=== PATIENT | female | born 1980 | race Caucasian/White ===

== ENCOUNTER 2016-10-19 08:24 | Emergency (ER) | payer BC, OTHER ==
[2016-10-19 08:36] VITALS: BP 105/81
--- NOTE | 2016-10-19 09:29 | UC ---
FLU HPI - HPI Summary HPI Summary: 2 DAYS OF FEVER, CHILLS, ST, TAVERA, BODY ACHES, COUGH, CONGESTION AND FATIGUE. ALSO HAS SOME MILD NAUSEA AND LOOSE STOOLS. NO FLU SHOT THIS SEASON. HAS BEEN TAKING LEFTOVER AMOXICILLIN WITH NO IMPROVEMENT. - History of Current Complaint Chief Complaint: UCRespiratory Stated Complaint: BODY ACHES,TAVERA,FEVER, CONGEST Time Seen by Provider: 10/19/16 09:07 Hx Obtained From: Patient Hx Last Menstrual Period: October 07, 2016 Onset/Duration: Gradual Onset, Lasting Days, Still Present Severity Currently: Moderate Severity Initially: Moderate Pain Intensity: 5 Pain Scale Used: 0-10 Numeric Associated Signs & Symptoms: Positive: Fever, Myalgia, Cough, Sore Throat, Nasal Congestion, Headache, Diarrhea - Allergy/Home Medications Allergies/Adverse Reactions: Allergies Allergy/AdvReac Type Severity Reaction Status Date / Time No Known Allergies Allergy Verified 12/26/15 15:58 Home Medications: Home Medications Albuterol 0.5% CONC NEB.SATINDER* 10/19/16 [History] Ibuprofen [Advil] 800 mg PO 10/19/16 [History] PMH/Surg Hx/FS Hx/Imm Hx Endocrine History Of: Denies: Diabetes, Thyroid Disease, Hyperthyroidism, Hypothyroidism, Dyslipidemia Cardiovascular History Of: Denies: Cardiac Disorders, Hypertension, Pacemaker/ICD, Myocardial Infarction , Congestive Heart Failure, Atrial Fibrillation, Deep Vein Thrombosis, Bleeding Disorders Respiratory History Of: Reports: Pneumonia - november - did not complete anbx as directed Denies: COPD, Asthma, Bronchitis, Pulmonary Embolism GI/ History Of: Denies: Gastroesophageal Reflux, Ulcer, Gastrointestinal Bleed, Gall Bladder Disease, Kidney Stones, Diverticulitis, Renal Disease, Urosepsis Neurological History Of: Reports: Migraine - X1 Denies: TIA, CVA, Dementia, Seizures Psychological History Of: Denies: Anxiety, Depression, Bipolar Disorder, Schizophrenia, Post Traumatic Stress Disorder Cancer History Of: Denies: Lung Cancer, Colorectal Cancer, Breast Cancer, Prostate Cancer, Cervical Cancer Other History Of: Negative For: HIV, Hepatitis B, Hepatitis C - Surgical History Surgical History: Yes Surgery Procedure, Year, and Place: 2006, [facility]. [facility], [facility], 17 YRS AGO - Family History Known Family History: Positive: Hypertension, Diabetes Negative: Respiratory Disease - Social History Alcohol Use: None Substance Use Type: None Smoking Status (MU): Light Every Day Tobacco Smoker Type: Cigarettes Amount Used/How Often: 1/2 PPD Have You Smoked in the Last Year: Yes Household Exposure Type: Cigarettes Review of Systems Constitutional: Fever, Chills, Fatigue ENT: Sore Throat, Ear Ache, Nasal Discharge Respiratory: Cough Cardiovascular: Negative Gastrointestinal: Diarrhea, Other - NAUSEA Musculoskeletal: Arthralgia, Myalgia Neurological: Headache All Other Systems Reviewed And Are Negative: Yes Physical Exam Triage Information Reviewed: Yes Appearance: No Pain Distress, Well-Nourished, Ill-Appearing - MILD Vital Signs: Initial Vital Signs Temp 98.8 F 10/19/16 08:30 Pulse 113 10/19/16 08:30 Resp 20 10/19/16 08:30 BP 105/81 10/19/16 08:30 Pulse Ox 98 10/19/16 08:30 Eyes: Positive: Conjunctiva Clear ENT: Positive: Hearing grossly normal, Pharynx normal, TMs normal Neck: Positive: Supple, Nontender, Enlarged Nodes @ - SPFL CERVICAL LAD Respiratory Exam: Normal Cardiovascular: Positive: Tachycardia Abdomen Description: Positive: Soft Musculoskeletal: Positive: No Edema Neurological: Positive: Alert Psychological: Positive: Age Appropriate Behavior Skin: Negative: rashes Diagnostics - Laboratory Diagnostic Studies Completed/Ordered: RAPID FLU NEGATIVE Flu Course/Dx - Differential Dx/Diagnosis Provider Diagnoses: ACUTE VIRAL SYNDROME Discharge - Discharge Plan Condition: Stable Disposition: HOME Patient Education Materials: Viral Syndrome (ED) Forms: *Work Release Referrals: Daily Milton MD [Primary Care Provider] - If Needed Additional Instructions: RAPID FLU NEGATIVE. REST, HYDRATE, OTC MEDS NEEDED FOR DISCOMFORT. SEEK FOLLOW-UP IF YOU ARE NOT IMPROVING EXPECTED OVER THE NEXT WEEK OR SO. CALL THE NUMBER BELOW FOR ASSISTANCE IN ESTABLISHING WITH A PCP An additional resource available to assist in finding the appropriate physician for your health care needs is the [facility] ([facility]). You may contact them by calling [phone].
== END 2016-10-19 10:05 | disposition home or self-care (01) ==
LOC: UCEAST 08:24
DX: B34.9 Viral infection, unspecified (principal); F17.210 Nicotine dependence, cigarettes, uncomplicated
CPT/HCPCS: 87502; 99211; G0463

== ENCOUNTER 2016-10-23 19:24 | Emergency (ER) | payer BC ==
[2016-10-23 20:16] VITALS: BP 121/79
[2016-10-23] MEDS ORDERED: Albuterol 2.5 MG/3 ML NEB.SOL* (0.083%) INH ONE (20:20)
--- NOTE | 2016-10-23 20:29 | UC ---
Respiratory Complaint HPI - HPI Summary HPI Summary: patient has had increased SOB, cough and ran out of her albuterol. has had re- occuring pnuemonia over this past year. she is coughing and having trouble catching her breath, slightly tachycardic, no fever - History of Current Complaint Chief Complaint: UCGeneralIllness Stated Complaint: SINUS PAIN,CONGESTION Time Seen by Provider: 10/23/16 20:18 Hx Obtained From: Patient Hx Last Menstrual Period: 10/21/16 ?: No Onset/Duration: Sudden Onset, Lasting Days Severity Initially: Mild Severity Currently: Severe Character: Cough: Nonproductive Aggravating Factors: Exertion, Deep Breaths, Recumbent Position Alleviating Factors: Upright Position Associated Signs And Symptoms: Positive: Dyspnea, Wheezing, URI, Nasal Congestion - Risk Factors Pulmonary Embolism Risk Factors: Negative Cardiac Risk Factors: Negative Pseudomonas Risk Factors: Negative Tuberculosis Risk Factors: Negative - Allergies/Home Medications Allergies/Adverse Reactions: Allergies Allergy/AdvReac Type Severity Reaction Status Date / Time No Known Allergies Allergy Verified 10/23/16 20:08 PMH/Surg Hx/FS Hx/Imm Hx Previously Healthy: Yes Endocrine History Of: Denies: Diabetes, Thyroid Disease, Hyperthyroidism, Hypothyroidism, Dyslipidemia Cardiovascular History Of: Denies: Cardiac Disorders, Hypertension, Pacemaker/ICD, Myocardial Infarction , Congestive Heart Failure, Atrial Fibrillation, Deep Vein Thrombosis, Bleeding Disorders Respiratory History Of: Reports: Pneumonia - november - did not complete anbx as directed Denies: COPD, Asthma, Bronchitis, Pulmonary Embolism GI/ History Of: Denies: Gastroesophageal Reflux, Ulcer, Gastrointestinal Bleed, Gall Bladder Disease, Kidney Stones, Diverticulitis, Renal Disease, Urosepsis Neurological History Of: Reports: Migraine - X1 Denies: TIA, CVA, Dementia, Seizures Psychological History Of: Denies: Anxiety, Depression, Bipolar Disorder, Schizophrenia, Post Traumatic Stress Disorder Cancer History Of: Denies: Lung Cancer, Colorectal Cancer, Breast Cancer, Prostate Cancer, Cervical Cancer Other History Of: Negative For: HIV, Hepatitis B, Hepatitis C - Surgical History Surgical History: Yes Surgery Procedure, Year, and Place: 2006, [facility]. [facility], 17 YRS AGO - Family History Known Family History: Positive: Hypertension, Diabetes Negative: Respiratory Disease - Social History Alcohol Use: None Substance Use Type: None Smoking Status (MU): Light Every Day Tobacco Smoker Type: Cigarettes Amount Used/How Often: 1/2 PPD Have You Smoked in the Last Year: Yes Household Exposure Type: Cigarettes - Immunization History Most Recent Influenza Vaccination: NONE Most Recent Tetanus Shot: UTD Most Recent Pneumonia Vaccination: N/A Review of Systems Constitutional: Negative Skin: Negative Eyes: Negative ENT: Sore Throat Respiratory: Shortness Of Breath, Cough Cardiovascular: Negative Gastrointestinal: Negative Genitourinary: Negative Motor: Negative Neurovascular: Negative Musculoskeletal: Negative Neurological: Headache Psychological: Negative All Other Systems Reviewed And Are Negative: Yes Physical Exam Triage Information Reviewed: Yes Appearance: Well-Nourished, Ill-Appearing, Pain Distress Vital Signs: Initial Vital Signs Temp 99.2 F 10/23/16 20:11 Pulse 110 10/23/16 20:11 Resp 18 10/23/16 20:11 BP 121/79 10/23/16 20:11 Pulse Ox 97 10/23/16 20:11 Vital Signs Reviewed: Yes Eye Exam: Normal Eyes: Positive: Conjunctiva Clear ENT: Positive: Pharyngeal erythema Dental Exam: Normal Neck exam: Normal Neck: Positive: Supple, Nontender, No Lymphadenopathy Respiratory Exam: Normal Respiratory: Positive: Chest non-tender, Normal breath sounds, Respiratory distress - mild, Rhonchi, Expiration, Inspiration Cardiovascular Exam: Normal Cardiovascular: Positive: No Murmur, Pulses Normal, Tachycardia Abdominal Exam: Normal Abdomen Description: Positive: Nontender, No Organomegaly, Soft Bowel Sounds: Positive: Present Musculoskeletal Exam: Normal Musculoskeletal: Positive: Strength Intact, ROM Intact, No Edema Neurological Exam: Normal Neurological: Positive: Alert, Muscle Tone Normal Psychological Exam: Normal Skin Exam: Normal UC Diagnostic Evaluation - Laboratory O2 Sat by Pulse Oximetry: 97 Re-Evaluation - Re-Evaluation First Eval Re-Evaluation Time: 20:55 - improved with neb treatment, wheezing still audible Change: Improved Respiratory Course/Dx - Course Course Of Treatment: hx obtained, exam performed, meds reviewed, albuterol neb given, chest xray obtained, no obvious infiltrate noted by Dr Trammell. Treated for sinusitis and Bronchitis. HX of smoking and chronic lung disease, starteed on LABA. gianfranco Claude infor given to find a PCP. - Differential Dx/Diagnosis Differential Diagnosis/HQI/PQRI: Asthma, Bronchitis, Influenza, Lower Resp Infection, Sinusitis Provider Diagnoses: sinusitis. bronchitis Discharge - Discharge Plan Condition: Stable Disposition: HOME Prescriptions: Azithromycin TAB* [Zithromax TAB (Z-RICHARD) 250 mg #6 tabs] 250 mg PO DAILY #4 tab Fluconazole [Diflucan 150 MG (NF)] 150 mg PO ONCE #1 tab Salmeterol DISKUS (NF) [Serevent Diskus (NF)] 1 puff .SEE ORDER BID #1 diskus predniSONE TAB* [Deltasone TAB*] 40 mg PO DAILY #10 tab Patient Education Materials: Acute Bronchitis (ED), COPD (Chronic Obstructive Pulmonary Disease) (ED), Sinusitis (ED) Additional Instructions: 1. take the medication as prescribed 2. Increase fluid intake 3. Get some rest 4. Take the medication as prescribed 5. Follow up with any worsening symptoms.
[2016-10-23] MEDS ORDERED: Albuterol HFA INHALER* 8 gm MDI INH ONE (20:30)
[2016-10-23] MEDS ORDERED: predniSONE TAB* 20 MG PO ONE (21:12)
[2016-10-23] MEDS ORDERED: Azithromycin TAB* 250 MG PO ONE (21:40)
--- NOTE | 2016-10-23 22:06 | RAD ---
INDICATION: Cough and shortness of breath COMPARISON: Most recent comparison chest x-ray May 09, 2016 TECHNIQUE: PA and lateral views of the chest were obtained. FINDINGS: The heart and mediastinum are normal in size and contour. The lungs are grossly clear. There is no evidence of large pleural effusion. Visualized bones are normal for the patient's age. There is no radiographic evidence of free air beneath the diaphragm IMPRESSION: No radiographic evidence of acute cardiopulmonary disease.
== END 2016-10-23 22:05 | disposition home or self-care (01) ==
LOC: UCEAST 19:24
DX: G43.909 Migraine, unspecified, not intractable, without status migrainosus (principal); J32.9 Chronic sinusitis, unspecified; J40 Bronchitis, not specified as acute or chronic; F17.210 Nicotine dependence, cigarettes, uncomplicated; Z87.01 Personal history of pneumonia (recurrent)
CPT/HCPCS: 71020; 99213; A9270-GY; G0463; J7512

== ENCOUNTER 2017-01-21 07:43 | Emergency (ER) | payer BC ==
[2017-01-21 07:58] VITALS: BP 121/78
[2017-01-21] MEDS ORDERED: ceFAZolin 1 GM ADVAN(*) 1 GM in NS 0.9% 50 ML* 50 ML IVPB ONE (09:03)
[2017-01-21] MEDS ORDERED: Ibuprofen TAB* 600 MG PO ONE (09:13)
--- NOTE | 2017-01-21 09:24 | UC ---
Jadon Mello Benjamin, scribed for Helen Colbert MD on 01/21/17 at 0856 . Skin Complaint HPI - HPI Summary HPI Summary: . 36 yo female c/o progresively worse left ant groin swelling and pain. Hx hydradenitis on and off x 20 years, most recently this bad approx 3 years ago. Request to be evaluated for iv abx and specialist referral. Does not want this "lanced" here. Started old rx for doxycycline 2 days ago, last took yesterday. Didn't help. Has been taking ibuprofen for pain. No fever but taking ibuprofen. - History of Current Complaint Chief Complaint: UCSkin Time Seen by Provider: 01/21/17 08:43 Stated Complaint: SKIN COMPLAINT Hx Obtained From: Patient Hx Last Menstrual Period: 12/27/16 - Allergy/Home Medications Allergies/Adverse Reactions: Allergies Allergy/AdvReac Type Severity Reaction Status Date / Time No Known Allergies Allergy Verified 01/21/17 07:50 Home Medications: Home Medications DOXYcycline CAP(*) [DOXYcycline 100MG CAP(*)] 1 tab PO 01/21/17 [History] Review of Systems Constitutional: Other - See HPI Skin: Negative Eyes: Negative ENT: Negative Respiratory: Negative Cardiovascular: Negative Gastrointestinal: Negative Genitourinary: Other - see hpi Motor: Negative Neurovascular: Negative Musculoskeletal: Negative Neurological: Negative Psychological: Negative All Other Systems Reviewed And Are Negative: Yes PMH/Surg Hx/FS Hx/Imm Hx - Additional Past Medical History Additional PMH: hidradenitis suppurativa Previously Healthy: Yes - see hpi Other History Of: Negative For: HIV, Hepatitis B, Hepatitis C - Surgical History Surgical History: Yes Surgery Procedure, Year, and Place: 2006, [facility]. [facility], 17 YRS AGO - Family History Known Family History: Positive: Hypertension, Diabetes Negative: Respiratory Disease - Social History Occupation: Employed Full-time Lives: With Family Alcohol Use: None Substance Use Type: None Smoking Status (MU): Light Every Day Tobacco Smoker Type: Cigarettes Amount Used/How Often: 1/2 PPD Have You Smoked in the Last Year: Yes Household Exposure Type: Cigarettes - Immunization History Most Recent Influenza Vaccination: NONE Most Recent Tetanus Shot: UTD Most Recent Pneumonia Vaccination: N/A Physical Exam Triage Information Reviewed: Yes Appearance: Well-Nourished, Pain Distress - uncomfortable with exam Vital Signs: Initial Vital Signs Temp 98.9 F 01/21/17 07:51 Pulse 104 01/21/17 07:51 Resp 16 01/21/17 07:51 BP 121/78 01/21/17 07:51 Pulse Ox 100 01/21/17 07:51 Vital Signs Reviewed: Yes Eye Exam: Normal ENT Exam: Normal Neck: Positive: Supple Respiratory Exam: Normal - No tachypnea, no dyspnea Respiratory: Positive: Normal breath sounds Cardiovascular: Positive: RRR, Pulses Normal, Brisk Capillary Refill Abdominal Exam: Other - L ant groin, lateral to the labia (not Corby cyst region ), wiht + swelling, redness, pinpoint purulence, not draining. Very tender. Abdomen Description: Positive: Nontender, No Organomegaly, Soft Bowel Sounds: Positive: Present Musculoskeletal Exam: Normal Neurological Exam: Normal Psychological Exam: Normal Skin Exam: Normal Skin: Negative: rashes Course/Dx - Course Course Of Treatment: Declines tetanus immunization. Emphatically does NOT want the lesion I/D'd, citing that the last time it was "lanced," approx 3 years ago , it took four times and she wound up in the hospital ([place]). Wants a specialist. Reviewed pt's medications list and allergies. Blood pressure noted. Discussed to Dr. Mcqueen ([employer]) at 09:02, he will see pt in ED. Discussed to Dr. Euceda (Emergency Medicine) at ED at 09:13 for transfer via private car. Offered EMS, pt declines. Questions answered to the best of my ability. Appreciative of plan and coa. - Diagnoses Provider Diagnoses: Left ant groin abscess, likely hydradenitis (hx of) Discharge - Discharge Plan Condition: Stable Disposition: ADMITTED TO [facility] Patient Education Materials: Abscess (ED) Referrals: Eldon Mcqueen MD [Medical Doctor] - Additional Instructions: Go to the Emergency Department. Do not eat or drink anything en route. The documentation as recorded by the Jadon gannon Benjamin accurately reflects the service I personally performed and the decisions made by me, Helen Colbert MD.
== END 2017-01-21 09:30 | disposition short-term general hospital (02) ==
LOC: UCEAST 07:43
DX: L02.214 Cutaneous abscess of groin (principal); Z32.02 Encounter for pregnancy test, result negative; F17.210 Nicotine dependence, cigarettes, uncomplicated
CPT/HCPCS: 81003; 84702; 99212; A9270-GY; G0463

== ENCOUNTER 2017-01-21 09:49 | Emergency (ER) | payer BC ==
[2017-01-21 11:28] VITALS: BP 139/81
--- NOTE | 2017-01-21 11:46 | ED ---
Skin Complaint - HPI Summary HPI Summary: Patient is a 36yo female who presents form the [facility] with CC of hidradenitis suppurativa with abscess in the left anterior groin with swelling and pain. Most recently this bad approx 3 years ago. Request to be evaluated for iv abx and specialist referral. Does not want this "lanced" here. Started old rx for doxycycline 2 days ago, last took yesterday. Didn't help. Has been taking ibuprofen for pain. No fever but taking ibuprofen. She states she does not want it to be I and D'd and continues to say states she only wants the IV abx and to be referred to a specialist next week. Denies fevers, sweats or chills. Denies other rashes. - History of Current Complaint Chief Complaint: EDRashSkinAbscess Time Seen by Provider: 01/21/17 10:02 Stated Complaint: GROIN ABSCESS Hx Obtained From: Patient Hx Last Menstrual Period: 12/27/16 Onset/Duration: Started Hours Ago Skin Exposure Onset/Duration: Hours Ago Timing: Constant Onset Severity: Moderate Pain Intensity: 6 Pain Scale Used: 0-10 Numeric Skin Location: Leg - left anterior groin Character: Swelling, Pain, Redness, Raised, Painful Aggravating Symptom(s): Touch Alleviating Symptom(s): Nothing Associated Signs & Symptoms: Tenderness - Additional Pertinent History Previous Visit Within 72 Hours for the same complaint: Clinic - [facility] - Allergy/Home Medications Allergies/Adverse Reactions: Allergies Allergy/AdvReac Type Severity Reaction Status Date / Time No Known Allergies Allergy Verified 01/21/17 09:53 PMH/Surg Hx/FS Hx/Imm Hx Previously Healthy: Yes Endocrine/Hematology History: Reports: Other Endocrine/Hematological Disorders - Molar Denies: Hx Diabetes, Hx Systemic Lupus Erythematosus, Hx Sickle Cell Disease , Hx Thyroid Disease Cardiovascular History: Denies: Hx Congestive Heart Failure, Hx Deep Vein Thrombosis, Hx Hypertension , Hx Myocardial Infarction, Hx Pacemaker/ICD, Other Cardiovascular Problems/ Disorders Respiratory History: Reports: Hx Pneumonia - november - did not complete anbx as directed Denies: Hx Asthma, Hx Chronic Obstructive Pulmonary Disease (COPD), Hx Cystic Fibrosis, Hx Lung Cancer, Hx Pulmonary Embolism, Other Respiratory Problems/Disorders GI History: Denies: Hx Gall Bladder Disease, Hx Gastrointestinal Bleed, Hx Ulcer, Hx Urosepsis History: Reports: Hx Kidney Infection - JAN 2015 Denies: Hx Dialysis, Hx Kidney Stones, Hx Renal Disease Musculoskeletal History: Denies: Hx Rheumatoid Arthritis, Other Musculoskeletal History Sensory History: Reports: Hx Contacts or Glasses - CONTACTS Denies: Hx Hearing Aid Opthamlomology History: Reports: Hx Contacts or Glasses - CONTACTS Neurological History: Reports: Hx Migraine - X1 Denies: Hx Dementia, Hx Seizures, Hx Transient Ischemic Attacks (TIA), Other Neuro Impairments/Disorders Psychiatric History: Denies: Hx Anxiety, Hx Depression, Hx Schizophrenia, Hx Bipolar Disorder - Cancer History Hx Chemotherapy: No Hx Radiation Therapy: No - Surgical History Surgery Procedure, Year, and Place: 2006, [facility]. 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 Denies: Hx Hepatitis, Hx Human Immunodeficiency Virus (HIV), Hx Shingles, Hx Tuberculosis, History Other Infectious Disease, Traveled Outside the [place] in Last 30 Days - Family History Known Family History: Positive: Hypertension, Diabetes Negative: Respiratory Disease - Social History Alcohol Use: None Substance Use Type: Reports: None Hx Tobacco Use: Yes Smoking Status (MU): Light Every Day Tobacco Smoker Type: Cigarettes Amount Used/How Often: 1/2 PPD Have You Smoked in the Last Year: Yes Review of Systems Constitutional: Negative Eyes: Negative Cardiovascular: Negative Gastrointestinal: Negative Positive: no symptoms reported, see HPI Positive: Other - 2x2 raised painful erythematous abscess on left groin without drainage Neurological: Negative Psychological: Normal All Other Systems Reviewed And Are Negative: Yes Physical Exam Triage Information Reviewed: Yes Vital Signs On Initial Exam: Initial Vitals Temp Pulse Resp BP Pulse Ox 98.6 F 97 16 131/86 100 01/21/17 09:53 01/21/17 09:53 01/21/17 09:53 01/21/17 09:53 01/21/17 09:53 Vital Signs Reviewed: Yes Appearance: Positive: Well-Appearing, Well-Nourished Skin: Positive: Warm, Skin Color Reflects Adequate Perfusion, Other - 2x2 raised painful erythematous abscess on left groin without drainage Head/Face: Positive: Normal Head/Face Inspection Neck: Positive: Supple, No Lymphadenopathy Respiratory/Lung Sounds: Positive: Clear to Auscultation, Breath Sounds Present Cardiovascular: Positive: Normal, RRR, Pulses are Symmetrical in both Upper and Lower Extremities Musculoskeletal: Positive: Normal Neurological: Positive: Sensory/Motor Intact, Alert, Oriented to Person Place, Time Psychiatric: Positive: Normal AVPU Assessment: Alert - Ling Coma Scale Coma Scale Total: 15 Diagnostics - Vital Signs Vital Signs Temp Pulse Resp BP Pulse Ox 01/21/17 11:20 98.6 F 65 18 139/81 98 01/21/17 09:53 98.6 F 97 16 131/86 100 - Laboratory Result Diagrams: 01/21/17 12:25 01/21/17 12:25 Lab Statement: Any lab studies that have been ordered have been reviewed, and results considered in the medical decision making process. Course/Dx - Course Course Of Treatment: Patient sent by [facility] for evaluation of abscess. Hx of hidradenitis suppurativa. 2x2 raised painful erythematous abscess on left groin without drainage. Called and spoke with Dr. Mcqueen (OBGYN) who suggested follow up as outpatient (recommended [facility]) and Tetracycline 500mg BID x 10 weeks. She states she has had this in the past and has worked. All labs WNL. She is adament about not wanting the area to have an I and D. Denies fevers, sweats or chills and no systemic infection is suspected. Medications were reveiwed with patient. Encouarged to follow up with PCP or return to ED for worsening symptoms. Return precautions given. Patient understands and agrees with plan. Ok for discharge. - Differential Diagnoses - Skin Complaint Differential Diagnoses: Abscess, Cellulitis - Diagnoses Provider Diagnoses: Hidradenitis suppurativa, Abscess Discharge - Discharge Plan Condition: Stable Disposition: HOME Prescriptions: Tetracycline HCl 500 mg PO BID #140 cap Patient Education Materials: Hidradenitis Suppurativa (ED) Referrals: Eldon Mcqueen MD [Medical Doctor] - No Primary Care Phys,NOPCP [Primary Care Provider] - Additional Instructions: This is likely something which will need to be followed by [facility]. I have given you a referral to our OBGYN, but should still follow up at [facility] Take Tetracycline 500mg twice daily for 10 weeks. If symptoms become worse, you develop fevers, sweats or chills - return to the ED immediately. Images - Images Full Body (No Head): 1 - 2x2 raised painful erythematous abscess on left groin without drainage
[2017-01-21] MEDS ORDERED: Clindamycin 900 MG IVPREMIX(* 900 MG/50 ML SDV IV ONE (11:54)
[2017-01-21 12:35] LABS: Hematocrit 42 % (35-47); Hemoglobin 13.9 g/dl (12.0-16.0); Mean Corpuscular HGB Conc 33 g/dl (31-36); Mean Corpuscular Hemoglobin 29 pg (27-31); Mean Corpuscular Volume 87 fL (80-97); Mean Platelet Volume 9 um3 (7.4-10.4); Red Blood Count 4.84 10^6/ul (4.0-5.4); Red Cell Distribution Width 14 % (10.5-15); White Blood Count 9.6 10^3/ul (3.5-10.8)
[2017-01-21 12:52] LABS: BUN/Creatinine Ratio 19.8 (8-20); C Reactive Protein 2.43 mg/L (< 5.00); EGFR African American 103.5 (>60); EGFR Non-African American 80.5 (>60); Globulin 2.6 g/dL (2-4); Potassium 4.1 mmol/L (3.5-5.0); Total Bilirubin 0.5 mg/dL (0.2-1.0); Total Protein 6.6 g/dL (6.4-8.9)
[2017-01-21 14:14] LABS: Erythrocyte Sed Rate 8 mm/Hr (0-14)
== END 2017-01-21 13:21 | disposition home or self-care (01) ==
LOC: ED 09:49
DX: L73.2 Hidradenitis suppurativa (principal); L02.214 Cutaneous abscess of groin; F17.210 Nicotine dependence, cigarettes, uncomplicated
CPT/HCPCS: 36415; 80053; 85025; 85652; 86140; 99282

== ENCOUNTER 2017-05-13 11:29 | Emergency (ER) | payer BC ==
[2017-05-13 12:44] VITALS: BP 99/80
--- NOTE | 2017-05-13 13:08 | UC ---
Respiratory Complaint HPI - HPI Summary HPI Summary: 36 yo female with an one week hx of progressively worsening sinus pressure and pain worse on right right dental pain and gum sensitivity - History of Current Complaint Chief Complaint: UCRespiratory Stated Complaint: SINUS CONGESTION, AND ACHES Time Seen by Provider: 05/13/17 12:51 Hx Obtained From: Patient Hx Last Menstrual Period: 3 wks ago Onset/Duration: Gradual Onset, Lasting Weeks - 1 Timing: Constant Severity Initially: Mild Severity Currently: Moderate Pain Intensity: 4 Pain Scale Used: 0-10 Numeric Aggravating Factors: Other Alleviating Factors: Other Associated Signs And Symptoms: Positive: Fever, Chills, Nasal Congestion, Sinus Discomfort - Allergies/Home Medications Allergies/Adverse Reactions: Allergies Allergy/AdvReac Type Severity Reaction Status Date / Time No Known Allergies Allergy Verified 05/13/17 12:44 PMH/Surg Hx/FS Hx/Imm Hx Previously Healthy: Yes Other History Of: Negative For: HIV, Hepatitis B, Hepatitis C - Surgical History Surgical History: Yes Surgery Procedure, Year, and Place: 2006, [facility]. [facility], [facility], 17 YRS AGO - Family History Known Family History: Positive: Hypertension, Diabetes Negative: Respiratory Disease - Social History Alcohol Use: None Substance Use Type: None Smoking Status (MU): Light Every Day Tobacco Smoker Type: Cigarettes Amount Used/How Often: 1/2 PPD Have You Smoked in the Last Year: Yes Household Exposure Type: Cigarettes - Immunization History Most Recent Influenza Vaccination: NONE Most Recent Tetanus Shot: UTD Most Recent Pneumonia Vaccination: N/A Review of Systems Constitutional: Fever, Chills, Fatigue Skin: Negative Eyes: Negative ENT: Dental Pain, Ear Ache, Nasal Discharge, Sinus Congestion, Sinus Pain/ Tenderness Respiratory: Cough Cardiovascular: Negative Gastrointestinal: Negative Genitourinary: Negative Motor: Negative Neurovascular: Negative Musculoskeletal: Negative Neurological: Negative Psychological: Negative Is Patient Immunocompromised?: No All Other Systems Reviewed And Are Negative: Yes Physical Exam Triage Information Reviewed: Yes Appearance: Well-Appearing, No Pain Distress, Well-Nourished Vital Signs: Initial Vital Signs Temp 98.8 F 05/13/17 12:41 Pulse 101 05/13/17 12:41 Resp 18 05/13/17 12:41 BP 99/80 05/13/17 12:41 Pulse Ox 100 05/13/17 12:41 Vital Signs Reviewed: Yes Eyes: Positive: Conjunctiva Clear ENT: Positive: Nasal congestion, Nasal drainage, TM bulging - R>L, Hoarse voice , Sinus tenderness - R>L. Negative: Trismus Neck: Positive: Supple, Nontender, No Lymphadenopathy Respiratory: Positive: Lungs clear, Normal breath sounds, No respiratory distress Cardiovascular: Positive: RRR, No Murmur Musculoskeletal: Positive: ROM Intact, No Edema Neurological: Positive: Alert Psychological Exam: Normal Skin Exam: Normal UC Diagnostic Evaluation - Laboratory O2 Sat by Pulse Oximetry: 100 - normal/not hypoxic Respiratory Course/Dx - Differential Dx/Diagnosis Provider Diagnoses: acute sinusitis. bilateral serous otitis media Discharge - Discharge Plan Condition: Stable Disposition: HOME Prescriptions: Amoxicillin PO (*) [Amoxicillin 875 MG (*)] 875 mg PO BID #20 tab Fluconazole 150 MG (NF) [Diflucan 150 mg (NF)] 150 mg PO ONCE #2 tab Patient Education Materials: Sinusitis (ED) Forms: *Work Release Referrals: No Primary Care Phys,NOPCP [Primary Care Provider] - Additional Instructions: afrin nasal spray 2 sprays each nostril 3x day for three days ONLY saline nasal spray 2 sprays each nostril twice daily as needed
== END 2017-05-13 13:16 | disposition home or self-care (01) ==
LOC: UCEAST 11:29
DX: J01.90 Acute sinusitis, unspecified (principal); H65.93 Unspecified nonsuppurative otitis media, bilateral; Z72.0 Tobacco use
CPT/HCPCS: 99212; G0463

== ENCOUNTER 2018-06-22 15:46 | Emergency (ER) | payer SELFPAY ==
[2018-06-22 15:56] VITALS: BP 125/77
--- NOTE | 2018-06-22 16:23 | UC ---
Abdominal Pain Female HPI - HPI Summary HPI Summary: 37-year-old woman comes to clinic today with a sudden onset of right lower quadrant abdominal pain. Started about an hour ago. Pain is severe. It's worse with movement of her right leg. Pain slightly less with her right hip flexed. Pain is bad enough where she felt nauseous. Denies any flank pain. Her only prior abdominal surgery was a . She does have a history of ovarian cyst. Her last period was 2 weeks ago denies any abnormal vaginal discharge or any concern of STI. No burning with urination did not see any blood in her urine. No history of kidney stones. - History of Current Complaint Chief Complaint: UCAbdominalPain Stated Complaint: ABDOMINAL PAIN Time Seen by Provider: 06/22/18 16:12 Hx Last Menstrual Period: 06/09/18 Pain Intensity: 7 Allergies/Adverse Reactions: Allergies Allergy/AdvReac Type Severity Reaction Status Date / Time No Known Allergies Allergy Verified 06/22/18 15:56 PMH/Surg Hx/FS Hx/Imm Hx Previously Healthy: Yes Other History Of: Negative For: HIV, Hepatitis B, Hepatitis C - Surgical History Surgical History: Yes Surgery Procedure, Year, and Place: 2006, [facility]. [facility], [facility], 17 YRS AGO - Family History Known Family History: Positive: Hypertension, Diabetes Negative: Respiratory Disease - Social History Alcohol Use: None Substance Use Type: None Smoking Status (MU): Heavy Every Day Tobacco Smoker Type: Cigarettes Amount Used/How Often: 1/2 PPD Have You Smoked in the Last Year: Yes Household Exposure Type: Cigarettes - Immunization History Most Recent Influenza Vaccination: NONE Most Recent Tetanus Shot: UTD Most Recent Pneumonia Vaccination: N/A Review of Systems All Other Systems Reviewed And Are Negative: Yes Constitutional: Positive: Negative Skin: Positive: Negative Eyes: Positive: Negative ENT: Positive: Negative Respiratory: Positive: Negative Cardiovascular: Positive: Negative Gastrointestinal: Positive: Abdominal Pain Genitourinary: Negative: Dysuria, Frequency, Urgency, Vaginal/Penile Discharge Motor: Positive: Negative Neurovascular: Positive: Negative Musculoskeletal: Positive: Negative Neurological: Positive: Negative Psychological: Positive: Negative Is Patient Immunocompromised?: No Physical Exam Triage Information Reviewed: Yes Appearance: Well-Nourished, Ill-Appearing - MILD, Pain Distress - MODERATE Vital Signs: Initial Vital Signs Temp 99.1 F 06/22/18 15:52 Pulse 91 06/22/18 15:52 Resp 20 06/22/18 15:52 BP 125/77 06/22/18 15:52 Pulse Ox 100 06/22/18 15:52 Vital Signs Reviewed: Yes Eye Exam: Normal Eyes: Positive: Conjunctiva Clear ENT: Positive: Other - ORAL MUCOSA MOIST Neck exam: Normal Neck: Positive: Supple Respiratory: Positive: Lungs clear, Normal breath sounds, No respiratory distress Cardiovascular: Positive: RRR Abdomen Description: Positive: Guarding, Other: - TENDER TO PALPATION RLQ. PAIN WITH RT HIP ROM.. Negative: CVA Tenderness (R), CVA Tenderness (L) Bowel Sounds: Positive: Hypoactive Musculoskeletal Exam: Normal Musculoskeletal: Positive: Strength Intact, ROM Intact Neurological Exam: Normal Neurological: Positive: Alert, Muscle Tone Normal Psychological Exam: Normal Psychological: Positive: Age Appropriate Behavior Skin Exam: Normal Abd Pain Female Course/Dx - Course Course Of Treatment: Patient's pain was moderate to severe in the clinic. With her tenderness in the right lower quadrant a differential includes appendicitis or ovarian source of the pain. Pain is worse with movements it's less likely kidney stone. However here in the clinic we do does not have ultrasound are real-time labs and I recommended the patient go to the emergency department. She is getting a ride from her boyfriend. - Differential Dx/Diagnosis Provider Diagnosis: Right lower quadrant abdominal pain Discharge - Sign-Out/Discharge Documenting (check all that apply): Patient Departure All imaging exams completed and their final reports reviewed: No Studies - Discharge Plan Condition: Stable Disposition: HOME-RECOMMEND TO ED Patient Education Materials: Acute Abdominal Pain (ED) Referrals: [facility] [Outside] Additional Instructions: GO DIRECTLY TO THE EMERGENCY DEPARTMENT FOR FURTHER EVALUATION. - Billing Disposition and Condition Condition: STABLE Disposition: Home-Recommend to ED
== END 2018-06-22 16:30 | disposition home health service (06) ==
LOC: UCEAST 15:46
DX: R10.31 Right lower quadrant pain (principal); F17.210 Nicotine dependence, cigarettes, uncomplicated
CPT/HCPCS: 81003; 84702; 99212; G0463

== ENCOUNTER 2018-08-24 07:39 | Inpatient (IN) | payer OTHER ==
[2018-08-24] MEDS ORDERED: NS 0.9% 1000 ML** 1,000 ML IV ONE (07:42)
--- NOTE | 2018-08-24 07:55 | ED ---
Neurological HPI - HPI Summary HPI Summary: Pt is a 37 y/o F presenting to the ED brought in by EMS for severe diffuse headache described as pressure. Per EMS, she woke up this morning with a severe , gradually worsening TAVERA and disorientation and dizziness with feeling like she was going to fall. Prior to arrival, she was negative on [place] scale per EMS The pt has a hx of CVA about 7 years ago where she originally came to [facility] ( this ED visit not visible to Dr. Euceda), was given TPA per pt (when asked specifically whether she had been given TPA), and was transferred to [facility]. (although pt is truly unsure of these details and wishes her mother were present to give more details.)She also has a hx of cluster headaches after her stroke, and Factor V Leiden. Pt is not on anticoagulants, and states she never has been. Pt states she had LP's at [facility] that helped her TAVERA's. Pt states she has not had her cluster headaches "in a long time", months at least. Per patient, she has had her headache for a couple of days, but she woke up today around 0500 with the severe headache, then went to go shower at 0530, as she was planning on driving to the emergency department, when she felt like she was going to fall to the right, and difficulty walking. She also reports severe shortness of breath, dizziness described as room spinning, and she had to think about everything she was doing in detail, as well as any spots in her vision while in the shower. Last known well this morning at 0500. Movement is aggravating, sitting up is alleviating. Pt denies hx of asthma, thyroid issues, sinus issues, or anticoagulation therapy. Pt also reports cough. She is not able to easily describe her feeling, and states she has not had it before, but states "it is not right". The pt has no hx of bleeding or trauma recently. . Per Eneida, staff at [facility] who knows her, she has had episodes approximately 1 year ago where she experienced syncope and had severe headaches and was going to [place] to be treated. The pt was seen at bedside on EMS arrival at 0737 (pt was not in the tracker until 0739). Adriano stoll called at 0740. NIH score at this time was 0. Pt gone to CT at 0742. Doctor gone to CT at 0748. Pt returned from CT at 0749. Pt is in room as of 0751. Vital signs on entering room: HR 95bpm, BP 115/88. Dr. Shah is aware at 0752. 0753 NIH scale is 0. 0756 Dr. Martinez from radiology called to report normal Brain CT. Dr. Edwards on telestroke call at 0802. 0820 Dr. Edwards wanted her to stand that causes her to wince and complain of headache. She reports dizziness, feeling like shes going to fall to her right, and is wobbly. Pt is unable to put her feet together and reaches out for support, feeling that she is falling. TPA discussed and approved by pt and recommended by Dr. Edwards at 0836. Dr. Shah in room at 0842. TPA hanging at 0846. BP at this time 143/99, pulse 93bpm, O2 sat 93%. 0849 On the phone with ICU, Dr. Hayes accepts the pt for admission at 0852. Bolus of TPA is in and infusion is beginning as of 0855 and the pt refused a velásquez catheter. Blood glucose fingerstick was 91 prior to TPA. LNMP last week. No excessive vaginal bleeding. A1. She is not on control. She is a smoker. She has a hx of smoking but has been trying to quit the last two weeks. She has had 2-4 cigarettes a day since then. She denies any drug or alcohol use. - History of Current Complaint Stated Complaint: CONFUSION PER EMS Time Seen by Provider: 08/24/18 07:39 Last Known Well Date: 08/24/18 05:00 Hx Obtained From: Patient, EMS Hx Last Menstrual Period: 06/09/18 Onset/Duration: Gradual Onset, Started days ago, Worse Since - this morning Timing: Constant Onset Severity: Moderate Current Severity: Worse Since: - this morning around 0530, now severe ( gradually worsening, not thunderclap) Neurological Deficit Location: Generalized Headache Location: Radiates to : - diffuse all over head Pain Intensity: 7 Pain Scale Used: 0-10 Numeric Character: Head Spinning, Room Spinning, Dizzy, Pressure, Confusion, Other: - gait disturbance Aggravating: Exertion, Position Change/Supine to Erect, Change in Head Position Alleviating: Position Change, Other - sitting up Associated Signs and Symptoms: Positive: Unsteady Gait, Confusion, Dizziness, Nausea/Vomiting - nausea no vomiting, Shortness of Breath. Negative: Visual Changes, Impaired Speech, Numbness, Fever TPA Considered: Yes - approved 0836 by patient (with mother present) per Dr. Edwards, telestroke. Similar Episode/Dx as: CVA 7 yrs ago, cluster headaches associated Related Hx: Anticoagulants - NOT ON ANTICOAGULANTS, +HX FACTOR V LEIDEN - Allergy/Home Medications Allergies/Adverse Reactions: Allergies Allergy/AdvReac Type Severity Reaction Status Date / Time No Known Allergies Allergy Verified 06/22/18 15:56 Home Medications: Home Medications NK [No Home Medications Reported] 08/24/18 [History Confirmed 08/24/18] PMH/Surg Hx/FS Hx/Imm Hx Previously Healthy: No Endocrine/Hematology History: Reports: Hx Blood Disorders - Factor V Leiden Denies: Hx Anticoagulant Therapy, Hx Diabetes, Hx Systemic Lupus Erythematosus, Hx Sickle Cell Disease, Hx Thyroid Disease Cardiovascular History: Denies: Hx Congestive Heart Failure, Hx Deep Vein Thrombosis, Hx Hypertension , Hx Myocardial Infarction, Hx Pacemaker/ICD Respiratory History: Reports: Hx Pneumonia Denies: Hx Asthma, Hx Chronic Obstructive Pulmonary Disease (COPD), Hx Cystic Fibrosis, Hx Lung Cancer, Hx Pulmonary Embolism, Other Respiratory Problems/Disorders GI History: Denies: Hx Gall Bladder Disease, Hx Gastrointestinal Bleed, Hx Ulcer, Hx Urosepsis History: Reports: Hx Kidney Infection - JAN 2015 Denies: Hx Dialysis, Hx Kidney Stones, Hx Renal Disease Musculoskeletal History: Denies: Hx Rheumatoid Arthritis, Other Musculoskeletal History Sensory History: Reports: Hx Contacts or Glasses - CONTACTS Denies: Hx Hearing Aid Opthamlomology History: Reports: Hx Contacts or Glasses - CONTACTS EENT History: Denies: Other - sinus issues Neurological History: Reports: Hx CVA - possible CVA 7 yrs ago, Hx Migraine - X1 , Other Neuro Impairments/Disorders - cluster headaches Denies: Hx Dementia, Hx Seizures, Hx Transient Ischemic Attacks (TIA) Psychiatric History: Denies: Hx Anxiety, Hx Depression, Hx Schizophrenia, Hx Bipolar Disorder - Cancer History Hx Chemotherapy: No Hx Radiation Therapy: No - Surgical History Surgery Procedure, Year, and Place: 2006, [facility]. 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 thigh Denies: Hx Hepatitis, Hx Human Immunodeficiency Virus (HIV), Hx Shingles, Hx Tuberculosis, History Other Infectious Disease - Family History Known Family History: Positive: Hypertension, Diabetes Negative: Respiratory Disease - Social History Occupation: Employed Full-time Lives: With Family Alcohol Use: None Hx Substance Use: No Substance Use Type: Reports: None Hx Tobacco Use: Yes - trying to quit Smoking Status (MU): Heavy Every Day Tobacco Smoker Type: Cigarettes Amount Used/How Often: 1/2 PPD Have You Smoked in the Last Year: Yes Review of Systems Negative: Fever Negative: Other - spots in vision ENT: Negative Cardiovascular: Negative Positive: Shortness Of Breath, Cough Positive: Nausea Positive: no symptoms reported Musculoskeletal: Negative Skin: Negative Neurological: Other - dizziness, feeling unsteady when walking Positive: Headache, Weakness. Negative: Numbness Psychological: Normal All Other Systems Reviewed And Are Negative: Yes Physical Exam - Summary Physical Exam Summary: Appearance: Ill-appearing, moderate pain distress, well-nourished Skin: Warm, color reflects adequate perfusion, dry Head: Normal Head/Face inspection, atraumatic Eyes: Conjunctiva clear, PERRL, EOMI, no nystagmus ENT: Normal inspection, palate elevates normally, pharynx normal Neck: Supple, no nodes, no JVD, no bruits Respiratory: Lungs clear, normal breath sounds, no respiratory distress Cardio: RRR, No murmur, pulses normal, brisk capillary refill Abdomen: Soft, nontender Bowel sounds: Present Musculoskeletal: Strength Intact/ROM intact, no calf tenderness, no edema. Psychological: Normal Neuro: A&O x3, CN II-XII intact, motor function 5/5, sensation intact, cerebellar normal FTN and heel to og[place], Unable to stand with feet together without falling to left, (but feels like she is falling to the right)and reaching for support. +Rhomberg. NIH zero GCS: 15 Triage Information Reviewed: Yes Vital Signs Reviewed: Yes - Ling Coma Scale Best Eye Response: 4 - Spontaneous Best Motor Response: 6 - Obeys Commands Best Verbal Response: 5 - Oriented Coma Scale Total: 15 Diagnostics - Laboratory Result Diagrams: 08/24/18 07:58 08/24/18 07:58 Lab Statement: Any lab studies that have been ordered have been reviewed, and results considered in the medical decision making process. - Radiology Chest x-ray Radiology Interpretation Completed By: Radiologist Summary of Radiographic Findings: No evidence for acute disease. ED physician has reviewed this report. - CT Brain CT CT Interpretation Completed By: Radiologist Summary of CT Findings: No evidence for intracranial hemorrhage following TPA administration. Stable exam compared with the 0748 hours exam of the same date. ED physician has reviewed this report. Brain CT I CT Interpretation Completed By: Radiologist Summary of CT Findings: No acute intracranial process evident. ED physician has reviewed this report. - EKG 0933 Cardiac Rate: NL - 75bpm EKG Rhythm: Sinus Rhythm ST Segment: Non-Specific Ectopy: None Summary of EKG Findings: An EKG at 0933 reveals NSR 75bpm nml AV/IV CT, nml QTc , and nml axis. No acute changes. ED physician has reviewed this report. NIH Scale - NIH Scale Level of Consciousness: Alert/Keenly Responsive Ask Patient the Month and His/Her Age: Both Correct Ask Pt to Open/Close Eyes and Web Marketing Assistant/Release Non-Paretic Hand: Both Correctly Best Gaze (Only Horizontal Eye Movement): Normal Visual Field Testing: No Visual Loss Facial Paresis-Pt to Smile & Close Eyes or Grimace Symmetry: Normal/Symmetrical Motor Function - Right Arm: No Drift-Holds 10 Seconds Motor Function - Left Arm: No Drift-Holds 10 Seconds Motor Function - Right Leg: No Drift-Holds 10 Seconds Motor Function - Left Leg: No Drift-Holds 10 Seconds Limb Ataxia-Must be out of Proportion to Weakness Present: Absent Sensory (Use Pinprick to Test Arms/Legs/Trunk/Face): Normal Best Language (Describe Picture, Name Items): No Aphasia Dysarthria (Read Several Words): Normal Extinction and Inattention: No Abnormality Total Score: 0 Re-Evaluation - Re-Evaluation First Eval Re-Evaluation Time: 09:04 Change: Worse Comment: Dr. Shah remains at bedside evaluating pt states that pt c/o headache worsening. TPA bolus is complete, infusion has begun. Dr. Shah recommends hold TPA infusion, and repeat stat CT brain. Second CT brain shows no bleed or changes per Dr. Martinez. Infusion restarted. Course/Dx - Course Course Of Treatment: Pt is a 37 y/o F presenting to the ED brought in by EMS for severe diffuse headache described as pressure for a few days. Related hx include Factor V Leiden, possible CVA 7 years ago, cluster headaches as a result , and she is a smoker in the process of quitting. The pt has no hx of brain bleeds or trauma. LKW 0500 when she awoke this am with TAVERA, but at 0530, she reports headache, dizziness described as room spinning, unsteady gait, cough, with movement aggravating symptoms and sitting up alleviating symptoms. Pt denies hx of asthma, thyroid issues, sinus issues, or anticoagulation therapy. LNMP last week, A1. The pt was seen at bedside on EMS arrival at 0737 (pt was not in the tracker until 0739). Adriano dodie called at 0740. NIH score at this time was 0. Pt gone to CT at 0742. Doctor gone to CT at 0748. Pt returned from CT at 0749. Pt is in room as of 0751. Vital signs on entering room: HR 95bpm, BP 115/88. Dr. Shah is aware at 0752. 0753 NIH scale is 0. 0756 Dr. Martinez from radiology called to report normal Brain CT. Dr. Edwards on telestroke call at 0802. 0820 Dr. Edwards wanted her to stand that causes her to wince and complain of headache. She is unable to stand with her feet together without reaching for support because she feels like she is falling. She reports dizziness, feeling like shes going to fall to her right, and is wobbly. TPA discussed and approved by pt at 0836, after recommended by Dr. Edwards. Risks vs benefits discussed and pt and mother agree to TPA, all witnessed by Dr. Euceda, with Dr. Edwards remaining on telestroke ipad. Dr. Shah in room at 0842. TPA hanging at 0846. BP at this time 143/99, pulse 93bpm, O2 sat 93%. Bolus and infusion are in process as of 0855 and the pt refused velásquez catheter. Blood glucose fingerstick was 91. 0849 On the phone with ICU, Dr. Hayes accepts the pt for admission at 0852. 0904 Dr. Shah stopped TPA infusion to get another brain CT scan due to worsening headache. 910 - Pt to second brain CT. 915 - Dr. Shah reports no bleeding on second brain CT, and he recommended finishing the infusion. 916 - Pt back to room. Reglan and magnesium ordered as pt requested no narcotics. 924 - Dr. Hayes requested 2mg of morphine be given to pt for worsening headache, which the pt agreed to. Second brain CT shows no evidence for intracranial hemorrhage following TPA administration. Stable exam compared with the 0748 hours exam of the same date. Results discussed with Dr. Singh at 924. An EKG at 932 reveals NSR at 75bpm, nml AV/ IV CT, nml QTc, and nml axis. No acute changes. Chest x-ray shows no evidence for acute disease. - Differential Dx Differential Diagnoses Neuro: Positive: Benign Paroxysmal Positional Vertigo, Cephalgia, Drug Toxicity, Headache, Hemorrhage, Intracranial Bleed, Labyrinthitis, Medication Reaction, Meningitis, Metabolic Abnormality, Migraine , Pulmonary Embolism, Viral Syndrome, Other - pseudotumor cerebri - Diagnoses Provider Diagnoses: Neurological symptoms, Received intravenous tissue plasminogen activator (tPA) in emergency department, Tobacco abuse disorder, Gait disturbance, Dizziness During the Visit The Following Alert/Code Occurred: Code Stoll Is Visit Related: No - Critical Care Time Critical Care Time: 30-74 min - 65 minutes Discharge - Sign-Out/Discharge Documenting (check all that apply): Patient Departure - Discharge Plan Condition: Stable Disposition: ADMITTED TO [facility] - Billing Disposition and Condition Condition: STABLE Disposition: Admitted to [facility] - Attestation Statements Document Initiated by Isabela: Yes Documenting Scribe: Lynn Truong Provider For Whom Isabela is Documenting (Include Credential): Dr. Jannie Euceda MD. Scribe Attestation: Lynn Mello scribed for Dr. Jannie Euceda MD. on 08/25/18 at 0036. Scribe Documentation Reviewed: Yes Provider Attestation: The documentation as recorded by the Lynn gannon accurately reflects the service I personally performed and the decisions made by , Dr. Jannie Euceda MD. Status of Scribe Document: Viewed Consult Consult: 7115 - Spoke with Dr. Hayes about the pt's present condition. She will be accepting the pt to the ICU. Dr. Shah, [facility] neurology will consult.
[2018-08-24 08:13] LABS: ABS Basophils 0.1 10^3/ul (0-0.2); ABS Eosinophils 0.1 10^3/ul (0-0.6); ABS Lymphocytes 2.1 10^3/ul (1.0-4.8); ABS Monocytes 0.7 10^3/ul (0-0.8); ABS Neutrophils 6.4 10^3/ul (1.5-7.7); ABS Nucleated RBC 0 10^3/ul; Eosinophil % 1.5 %; Hematocrit 45 % (35-47); Hemoglobin 14.8 g/dl (12.0-16.0); Lymphocyte % 22.1 %; Mean Corpuscular HGB Conc 33 g/dl (31-36); Mean Corpuscular Hemoglobin 28 pg (27-31); Mean Corpuscular Volume 86 fL (80-97); Mean Platelet Volume 8.5 fL (7.4-10.4); Nucleated Red Blood Cells % 0.1; Platelet Count 290 10^3/ul (150-450); Red Blood Count 5.31 10^6/ul (4.00-5.40); Red Cell Distribution Width 13 % (10.5-15); White Blood Count 9.3 10^3/ul (3.5-10.8)
[2018-08-24 08:23] LABS: Activated Partial Thrombo Time 30.9 seconds (26.0-36.3); INR 0.95 (0.77-1.02)
[2018-08-24 08:27] LABS: ALT 15 U/L (7-52); AST 14 U/L (13-39); Albumin 4.1 g/dL (3.2-5.2); Albumin/Globulin Ratio 1.6 (1-3); Alkaline Phosphatase 67 U/L (34-104); Anion Gap 6 mmol/L (2-11); BUN/Creatinine Ratio 22.7 (8-20); Blood Urea Nitrogen 17 mg/dL (6-24); CO2 Carbon Dioxide 24 mmol/L (22-32); Calcium 9.4 mg/dL (8.6-10.3); Chloride 108 mmol/L (101-111); Cholesterol 136 mg/dL; EGFR African American 105.8 (>60); EGFR Non-African American 87.4 (>60); Globulin 2.6 g/dL (2-4); Glucose 92 mg/dL (70-100); HDL Cholesterol 42.2 mg/dL; LDL Cholesterol 76 mg/dL; Potassium 4.1 mmol/L (3.5-5.0); Sodium 138 mmol/L (135-145); Total Protein 6.7 g/dL (6.4-8.9); Triglycerides 89 mg/dL
[2018-08-24] MEDS ORDERED: Alteplase* 100 MG VIAL ONE (08:32)
[2018-08-24] MEDS ORDERED: Alteplase* 100 MG in PREMIX* 100 ML IV ONE (08:32)
[2018-08-24 08:33] LABS: HCG Pregnancy < 0.60 mIU/mL
[2018-08-24] MEDS ORDERED: ALTEPLASE IV ONE ×2 (08:38→09:00)
--- OUTSIDE RECORDS SUMMARY | 2018-08-24 08:39 | XMS REPORT | Continuity of Care Document ---
:1980 External Reference #:[id number] Author Name Linnette Giraldo, RN [employer]PER[employer] HEL[employer] Address [address] [place] [address] Care Team Providers Name Role Phone Rosa Woods MD Care Team Information Extension Edger Unavailable Payers Date Identification Numbers Payment Provider Subscriber Effective: 2018 Policy Number: [id number] Willem Allen PayID: [id number] [address] [place] [address] Advance Directives Description No Information Available Problems Description No Information Family History Date Family Member(s) Observation Comments Mother Thyroid Disease Mother Diabetes, Adult Mother Hypertension Mother Hypercholesterolemia Mother Factor V Leiden Deficiency Maternal Grandfather Diabetes, Adult Maternal Grandfather Factor V Leiden Deficiency Maternal Grandmother Diabetes, Adult Maternal Aunts Factor V Leiden Deficiency x 2 aunts Social History Type Date Description Comments Sex Unknown Education Highest Level Completed 12th grade Marital Status sig other Marital Status , ofelia sutherland Lives With Daughter Lives With , 9 mo old son Hand Dominance RIGHT-handed Tobacco Use Start: Unknown currently smokes 1/2 Pack Daily ETOH Use Negative For Currently consumes alcohol Tobacco Use Start: Unknown Patient is a current smoker, smokes every day Smoking Status Reviewed: 08/10/18 Patient is a current smoker, smokes every day Sun Exposure moderate amount of sun exposure Sun Exposure Uses 15-30 SPF Seat Belt/Car Seat always Allergies, Adverse Reactions, Alerts Description No Known Drug Allergies Medications Medication Date Status Form Strength Qnty SIG Indications Ordering Provider Work Note 08/10/ Active patient J11.1 Kristal2018 was seen Linnette Gonsalez, in our RN [employer] office today no work 08/10/18 - 08/14/18 return to work 08/15/18. 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[employer]PERATOR HELPER 2010 No Work 10/30/ Hx D/T 10/30-10/31/ 787.03 Kristal 2009 - Illness 2010 Linnette Gonsalez, 11/09/ RN MS [employer]PER[employer] HEL[employer] 2009 Darvocet-N 100 10/24/ Hx Tablets 100-650mg 20tabs 1 po qid 620.2 Chuck, 2009 - prn Rosa 11/03/ MD Yumiko 2010 Ventolin HFA 03/19/ Hx Aerosol 108(90Base 1units 2 puffs as 466.0 Kristal 2008 - ) needed up Linnette Gonsalez, 11/03/ to qid RN MS [employer] 2010 Azithromycin 03/19/ Hx Tablets 250mg 6tabs 2 tabs day 466.0 Kristal 2008 - one and 1 Linnette Gonsalez, 03/29/ tab daily RN MS [employer] OPER[employer] HELPER 2008 till gone No Work 03/19/ Hx D/T out today 466.0 Kristal 2008 - Illness and Linnette Gonsalez, 03/29/ tomorrow, RN MS [employer]PER[employer] HEL[employer] 2008 May return on tuesday. Fluconazole 03/19/ Hx Tablets 150mg 1tabs take tab 466.0 Kristal 2008 - as Linnette Gonsalez, 10/24/ directed. RN MS [employer]PER[employer] HEL[employer] 2009 Augmentin 09/10/ Hx Tablets 500mg 20tabs 1 PO bid Kristal 2007 - With Food Linnette Gonsalez, 09/20/ RN MS [employer]PER[employer] HELPER 2007 Amoxicillin 05/26/ Hx Tablets 875mg 20tabs 1 po bid 680.2 Kristal 2004 - Linnette Gonsalez, 09/03/ RN MS [employer] OPERATOR HELPER 2007 Darvocet N 100 05/26/ Hx Tablets 100mg;650 30tabs 1-2 PO qid 463 Kristal 2004 - mg prn Pain Linnette Gonsalez, 09/03/ RN MS [employer] OPERATOR HELPER 2007 No Work Due To 463 Kristal, 05/27/052004 - Illness Linnette Gonsalez, 09/03/ RN MS [employer]ACH[employer] OPERATOR HELPER 2007 Keflex Capsules 250mg 28caps 1 po qid 680.2 Chuck, 2005 - Rosa 05/26/ MD Yumiko 2004 Compazine / Hx 10mg 6units one tab q 787.03 Kristal, 0000 - 6 hours as Linnette Gonsalez, 11/03/ needed for RN MS [employer]ACH[employer] OPERATOR HELPER 2010 vomiting Medications Administered in Office Medication Date Status Form Strength Qnty SIG Indications Ordering Provider PPD Administered Injection Andrés Shirley M.D. Immunizations CPT Code Status Date Vaccine Lot # [id number] Given 10/12/2000 MMR Virus Immunization 82917 Given 08/08/2000 Hepatitis B Vac Ped/Adolescent 3 Dose Schedule 23456 Given 08/08/2000 MMR Virus Immunization Vital Signs Date Vital Result Comment 08/10/2018 1:35pm Body Temperature 101.6 F Weight 143.12 lb Heart Rate 128 /min BP Systolic 105 mmHg BP Diastolic 71 mmHg Height 67 inches 5'7" BMI (Body Mass Index) 22.4 kg/m2 04/14/2018 9:48am Height 67 inches 5'7" 11/03/2010 11:04am Weight 135.00 lb Heart Rate 93 /min BP Systolic 127 mmHg BP Diastolic 81 mmHg Height 67 inches 5'7" BMI (Body Mass Index) 21.1 kg/m2 10/30/2009 9:47am Body Temperature 97.7 F Weight 131.00 lb Heart Rate 110 /min BP Systolic 128 mmHg BP Diastolic 93 mmHg 10/24/2009 4:17pm Weight 130.00 lb Heart Rate 88 /min BP Systolic 108 mmHg BP Diastolic 60 mmHg 03/19/2009 11:16am Body Temperature 98.0 F Weight 121.00 lb Heart Rate 71 /min BP Systolic 103 mmHg BP Diastolic 67 mmHg 07/23/2008 11:39am Body Temperature 97.9 F Weight 124.00 lb Heart Rate 93 /min BP Systolic 115 mmHg BP Diastolic 78 mmHg 12/08/2007 8:46am Weight 133.00 lb Heart Rate 96 /min BP Systolic 103 mmHg BP Diastolic 67 mmHg 09/04/2007 8:40am Weight 140.00 lb Heart Rate 101 /min BP Systolic 111 mmHg BP Diastolic 72 mmHg 05/26/2005 1:11pm Body Temperature 987.0 F Weight 143.00 lb Heart Rate 106 /min BP Systolic 123 mmHg BP Diastolic 76 mmHg 04/27/2005 9:11am Body Temperature 98.5 F Weight 147.00 lb Heart Rate 104 /min BP Systolic 131 mmHg BP Diastolic 87 mmHg Results Test Date Facility Test Result H/L Range Note Laboratory test 11/03/2010 [facility] Homocysteine 9.4 umol/L (5.0-18.0) 1 , 2 finding CBC With Auto Diff 11/03/2010 [facility] WBC 10.4 K/UL (4.1-11.0) RBC 5.15 M/UL (4.00-5.40) HGB 14.8 GM/DL (12.0-16.0) HCT 44.4 % (36.0-47.0) MCV 86.1 FL (80.0-95.0) MCH 28.8 pg (27.0-32.0) MCHC 33.4 g/dL (32.0-36.0) RDW 12.9 % (10.5-14.5) PLT 216 K/UL (150-400) MPV 10.3 FL (7.1-10.7) Neut % 62.9 % (35.0-75.0) Lymph % 30.2 % (16.0-52.0) Fajardo % 4.8 % (0-8.0) Eos % 0.4 % (0-5.0) Baso % 1.7 % (0-4.0) Neut # 6.6 K/UL (1.8-7.7) Lymph # 3.2 K/UL (1.2-4.8) Fajardo # 0.5 K/UL (0-0.8) Eos # 0.0 K/UL (0-0.5) Baso # 0.2 K/UL (0-0.2) 3 Comprehensive Metabolic (CMP) 11/03/2010 [facility] Sodium 145 mmol/L (136- 145) Potassium 4.9 mmol/L (3.6-5.2) Chloride 106 mmol/L (100-108) Co2 25 mmol/L (22-31) Anion Gap 14 mmol/L (7-16) Urea Nitrogen 12 mg/dL (7-24) Creatinine 1.1 mg/dL High (0.6-1.0) BUN/Creat Ratio 10.9 RATIO (10.0-20.0) Glucose 84 mg/dL (70-99) Calcium 9.5 mg/dL (8.4-10.2) Total Protein 7.3 g/dL (6.4-8.2) Albumin 4.3 g/dL (3.5-4.6) Globulin 3.0 g/dL (2.7-4.3) Alb/Glob Ratio 1.4 RATIO Alkaline Phosphatase 55 U/L (50-136) Bilirubin,Total 0.3 mg/dL (0.0-1.0) Ast (Sgot) 18 U/L (11-39) Alt (SGPT) 21 U/L Low (25-69) GFR 62 ML/MIN/1.73M2 (>59) GFR ( Amer) 76 ML/MIN/1.73M2 (>59) GFR Interpretation (SEE NOTE) 4 Celiac Disease Panel-RL 11/03/2010 [facility] Gliadin Peptide Iga 3 units ( <20) 5 Gliadin Peptide Igg 3 units (<20) 6 Iga @ 255 mg/dL (71-374) Transglutaminase Iga 5 units (<20) 7 Transglutaminase Igg 2 units (<20) 8 Laboratory test finding 11/03/2010 [facility] Protein S Total Ag 93 % 9 Protein C Total Ag 102 % 10 Urine Culture 10/30/2009 [facility] (Do not Use) Urine Culture - (SEE NOTE ) 11, 12 [facility] [place] [address] [phone] Specimen Description - LA N/A Special Requests - LA N/A Culture Result - LA N/A Report Status - LA N/A CBC With Auto Diff 10/30/2009 [facility] (Do not Use) WBC-LA 7.9 K/UL 4.1-11.0 [place] [address] [phone] RBC -LA 4.82 M/UL 4.00-5.40 Hemoglobin - LA 14.0 GM/DL 12.0-16.0 Hematocrit - LA 41.7 % 36.0-47.0 MCV -LA 86.7 FL 80.0-95.0 MCH -LA 29.1 pg 27.0-32.0 MCHC -LA 33.6 g/dL 32.0-36.0 RDW -LA 12.9 % 10.5-14.5 Platelet Count 227 K/ul 150-400 MPV -LA 9.4 FL 7.1-10.7 Dtype -LA N/A Neutrophil % -LA 53.6 % 35.0-75.0 Lymphocytes % -LA 37.5 % 16.0-52.0 Monocytes % -LA 7.6 % 0-8.0 Eosinophils % -LA 0.7 % 0-5.0 Basophils % -LA 0.6 % 0-4.0 Absoulte Neutrophils -LA 4.2 K/UL 1.8-7.7 Absolute Lymphocytes -LA 3.0 K/UL 1.2-4.8 Absolute Monocytes -LA 0.6 K/UL 0-0.8 Absolute Eosinophils -LA 0.1 K/UL 0-0.5 Absolute Basophils -LA 0.0 K/UL 0-0.2 13 Basic (BMP) 10/30/2009 [facility] (Do not Use) Sodium-Na 136 mmol/L 136 -145 [facility] [place] [address] [phone] Potassium-LA 4.3 mmol/L 3.6-5.2 Chloride - LA 106 mmol/L 100-108 Co2 (Carbon Dioxide) - LA 26 mmol/L 22-31 Glucose - LA 82 mg/dL 70-99 Calcium - LA 9.2 mg/dL 8.4-10.2 Urea Nitrogen (BUN) - LA 12 mg/dL 7-24 Creatinine, Serum 0.9 mg/dL 0.6-1.0 BUN/Creat Ratio - LA 13.3 RATIO 10.0-20.0 Anion Gap - LA 4 mmol/L Low 7-16 GFR - LA 79 ML/MIN/1.73M2 59.001-9999 GFR () - LA >90 ML/MIN/1.73M2 (>59) GFR Calculation - LA (SEE NOTE) 14 PT And Inr 12/08/2007 [facility] (Do not Use) Prothrombin Time 12.2 SEC 10.5-12.2 15 [facility] [place] [address] [phone] Inr 1.15 Low 2.0-3.0 16 Lipid Panel 12/08/2007 [facility] (Do not Use) Cholesterol 139 mg/dL 50 -199 [facility] [place] [address] [phone] Triglycerides 85 mg/dL 10-150 HDL 33 mg/dL Low 35-85 Chol/HDL Ratio 4.2 Ratio VLDL 17 mg/dL LDL (Calc) 89 mg/dL 20-129 Laboratory test 12/08/2007 [facility] (Do not Use) TSH 0.42 uIU/ml 0.34 -5.60 finding [facility] [place] [address] [phone] Basic (BMP) 12/08/2007 [facility] (Do not Use) Sodium 139 mmol/L 135- 144 [facility] [place] [place] [address] [phone] Potassium 5.2 mmol/L 3.6-5.2 Chloride 106 mmol/L 97-110 Carbon Dioxide 27 mmol/L 23-33 Glucose 85 mg/dL 70-105 BUN 9 mg/dL 6-22 Creatinine 0.7 mg/dL 0.5-1.3 BUN/CR 13 Ratio 12.0-20.0 Anion Gap 11 mmol/L 8-16 Calcium 9.8 mg/dL 8.6-10.2 GFR Calculation > 60 mL/min 17 GFR For > 60 mL/min 18 CBC With Auto Diff 12/08/2007 [facility] (Do not Use) WBC 8.5 K/ul 4.0- 10.9 [facility] [place] [address] [phone] RBC 4.97 M/ul 4.20-5.40 Hemoglobin 14.0 GM/dl 12.5-16.0 Hematocrit 42.4 % 36.0-47.0 MCV 85.2 FL 80.0-97.0 MCH 28.2 pg 27.0-31.0 MCHC 33.1 g/dL 32.0-36.0 RDW 13.4 % 11.5-14.5 Platelet Count 230 K/ul 140-440 Neutrophils 49.6 % Low 50-70 Lymphocytes 43.7 % 20-44 Monocytes 4.9 % 2-9 Eosinophil 1.1 % 0-4 Basophil 0.7 % 0-2 Absolute Neutrophils 4.2 K/ul 2.05-7.63 Absolute Lymphocytes 3.7 K/ul 0.8-4.8 Absolute Monocytes 0.4 K/ul 0.1-1.0 Absolute Eosinophils 0.1 K/ul 0.1-0.5 Absolute Basophils 0.1 K/ul 0.1-0.3 Wound Culture - LA 09/04/2007 [facility] (Do not Use) Specimen Description N/A [facility] [place] [address] [phone] Special Requests - LA N/A Result - LA N/A Report Status - LA N/A Laboratory test 04/27/2005 [facility] (Do not Use) Lesly [place] [address] [phone] CMP 04/27/2005 [facility] (Do not Use) Sodium 139 mmol/L 135-144 [place] [address] [phone] Potassium 4.3 mmol/L 3.6-5.2 Chloride 107 mmol/L 97-110 Carbon Dioxide 26 mmol/L 22-32 Glucose 72 mg/dL 70-105 BUN 12 mg/dL 6-22 Creatinine 0.8 mg/dL 0.5-1.3 BUN/CR 15 Ratio 12.0-20.0 Calcium 9.5 mg/dL 8.6-10.2 Total Protein 6.7 g/dL 5.8-7.8 Albumin 4.0 g/dL 3.5-4.8 Globulin 2.7 g/dL 2.0-3.5 A/G Ratio 1.5 Ratio 1.0-2.2 Total Bilirubin 0.3 mg/dL 0.3-1.2 Ast 22 U/L 12-40 Alt 22 U/L 4-45 Alkaline Phosphatase 65 U/L 24-108 Anion Gap 10 mmol/L 8-16 Laboratory test finding 04/27/2005 [facility] (Do not Use) Esr 2 MM/HR 0-20 [place] [address] [phone] TSH 0.70 uIU/ml 0.50-6.00 CBC 04/27/2005 [facility] (Do not Use) WBC 7.2 K/ul 4.1-10.9 [place] [address] [phone] RBC 5.27 M/ul 4.20-6.30 Hemoglobin 14.5 GM/dl 12.5-15.0 Hematocrit 44.3 % 36.0-47.0 MCV 84.1 FL 80.0-97.0 MCH 27.6 pg 26.0-32.0 MCHC 32.8 g/dL 31.0-36.0 RDW 12.3 % 11.5-14.5 Platelet Count 279 K/ul 140-440 Neutrophils 56.6 % 50-70 Lymphocytes 35.5 % 20-44 Monocytes 6.2 % 2-9 Eosinophil 0.8 % 0-4 Basophil 0.9 % 0-2 Absolute Neutrophils 4.0 K/ul 2.05-7.63 Absolute Lymphocytes 2.6 K/ul 0.8-4.8 Absolute Monocytes 0.4 K/ul 0.1-1.0 Absolute Eosinophils 0.1 K/ul 0.1-0.5 Absolute Basophils 0.1 K/ul 0.1-0.3 1 This sample is drawn by:MM 2 Unless otherwise specified, testing performed by [facility] [place] [address] 3 Unless otherwise specified, testing performed by [facility] [address] [place] [address] 4 NORMAL KIDNEY FUNCTION OR MILD DISEASE - GFR >OR=60 CHRONIC KIDNEY DISEASE - GFR 15 - 59 RENAL FAILURE - GFR <15 Est. GFR calculation based on the MDRD study equation, which assumes a steady state for creatinine. Est. GFR should not be used for medication dosing. Unless otherwise specified, testing performed by [facility] [address] [place] [id number] 5 INTERPRETATION OF RESULTS: < 20 UNITS NEGATIVE 20-30 UNITS WEAK POSITIVE > 30 UNITS MODERATE TO STRONG POSITIVE The following result was obtained with the [employer] QUANTA Lite Gliadin IgA II. Results obtained with other manufacturers' assay methods may not be used interchangeably. The magnitude of the reported IgA level cannot be correlated to an endpoint titer. 6 INTERPRETATION OF RESULTS: < 20 UNITS NEGATIVE 20-30 UNITS WEAK POSITIVE > 30 UNITS MODERATE TO STRONG POSITIVE The following result was obtained with the [employer] QUANTA Lite Gliadin IgG II. Results obtained with other manufacturers' assay methods may not be used interchangeably. The magnitude of the reported IgG levels cannot be correlated to an endpoint titer. 7 INTERPRETATION OF RESULTS: < 20 UNITS NEGATIVE 20-30 UNITS WEAK POSITIVE > 30 UNITS MODERATE TO STRONG POSITIVE The following result was obtained with the [employer] QUANTA Lite h-tTG IgA WAYNE. Results obtained with other manufacturers' assay methods may not be used interchangeably. The magnitude of the reported IgA level cannot be correlated to an endpoint titer. Performed at [address] [place] [address] 8 INTERPRETATION OF RESULTS: < 20 UNITS NEGATIVE 20-30 UNITS WEAK POSITIVE > 30 UNITS MODERATE TO STRONG POSITIVE The following result was obtained with the [employer] QUANTA Lite h-tTG IgG WAYNE. Results obtained with other manufacturers' assay methods may not be used interchangeably. The magnitude of the reported IgG levels cannot be correlated to an endpoint titer. Performed at [address] [place] [address] Unless otherwise specified, testing performed by [facility] [address] [address] 9 Reference range: 63 to 126 TEST INFORMATION: Protein S, Total Antigen Patients on oral anticoagulants may have decreased protein S values. Patients should be off oral anticoagulant therapy for two weeks for accurate measurement of protein S. Performed by [facility], [address] [place] [address] [id number] [email or web address], Pamella Maravilla MD, Lab. Director Unless otherwise specified, testing performed by [facility] [address] [place] [id number] 10 Reference range: 63 to 153 TEST INFORMATION: Protein C, Total Antigen Patients on oral anticoagulants may have decreased protein C values. Patients should be off oral anticoagulant therapy for two weeks for accurate measurement of protein C. Performed by [facility], [address] [place] [id number] [email or web address], Pamella Maravilla MD, Lab. Director Unless otherwise specified, testing performed by [facility] [address] [address] 11 This sample is drawn by: DB 12 SPECIMEN DESCRIPTION URINE, COLLECTION METHOD NOT SPECIFIED CULTURE RESULTS >100,000 CFU/ML LACTOBACILLUS SPECIES REPRESENTING URETHRAL NATE REPORT STATUS FINAL 11/01/2009 Unless otherwise specified, testing performed by [facility] [address] [place] [address] 13 Unless otherwise specified, testing performed by [facility] [address] [place] [address] 14 NORMAL KIDNEY FUNCTION OR MILD DISEASE - GFR >OR=60 CHRONIC KIDNEY DISEASE - GFR 15 - 59 RENAL FAILURE - GFR <15 Est. GFR calculation based on the MDRD study equation, which assumes a steady state for creatinine. Est. GFR should not be used for medication dosing. Unless otherwise specified, testing performed by [facility] [address] [place] [address] 15 FASTING 16 IT MUST BE STRESSED THAT THE INR IS SPECIFICALLY INTENDED FOR ASSESSING PATIENTS STABILIZED ON LONG-TERM ANTICOAGULANT THERAPY. THE RECOMMENDED THERAPEUTIC RANGE FOR: MOST PATIENTS ON COUMADIN INR: 2.0 - 3.0 PROPHYLAXIS/TREATMENT OF VENOUS THROMBOSIS PROPHYLAXIS/TREATMENT OF PULMONARY EMBOLIS PROSTHETIC HEART VALVES INR: 2.5 - 3.5 RECURRENT SYSTEMIC EMBOLISM 17 Concerning GFR GUIDELINES: Normal Function or Mild Renal Disease, if clinically at risk: >/=60mL/min Moderately decreased: 30-59 Severely decreased: 15-29 Renal Failure: <15 Glomerular Filtration Rate (GFR) is estimated based on the MDRD equation, which assumes a steady state for creatinine as recommended by the National Kidney Disease Education Program in conjunction with the National Institutes of Health and the National Kidney Foundation. Clinical conditions in which it may be necessary to measure GFR by using clearance methods include extremes of age and body size, severe malnutrition or obesity, diseases of skeletal muscle, paraplegia or quadriplegia, vegetarian diet, rapidly changing kidney function, and calculation of the dose of potentially toxic drugs that are excreted by the kidneys. 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 unspecified breast J11.1 Flu due to unidentified influenza virus w oth resp manifest Office Visit 11/03/2010 10:00a Linnette Grande, 682.8 Cellulitis & Abscess RN MS [employer] MACHINE OPERATOR HELPER Other Spec Sites 780.93 Memory Loss 369.20 Vision Low Both Eyes Impairment Level Not Further Spec 787.91 Diarrhea V18.3 History Family Blood Disorders Spec Other Office Visit 10/30/2009 10:00a Linnette Grande, 789.04 Pain Abdominal LEFT RN MS [employer] MACH[employer] OPERATOR HELPER [place] 620.2 Ovarian Cyst Other & Unspec 787.03 Vomiting Alone Office Visit 10/24/2009 4:00p Rosa Ventura 620.2 Ovarian Cyst Other & MD [facility] Unspec Office Visit 03/19/2009 11:00a Linnette Grande, 466.0 Bronchitis Acute RN MS [employer] MACHINE OPERATOR HELPER 305.1 Tobacco Use Disorder Office Visit 07/23/2008 11:30a Linnette Grande, RN 620.2 Ovarian Cyst Other & MS [employer]ER MACHINE OPERATOR HELPER Unspec 611.79 Breast Signs & Symptoms Other 305.1 Tobacco Use Disorder 786.59 Pain Chest Other 783.21 Loss Of Weight 307.42 Sleep Disorder Persistent Initiating Or Maintaining Sleep Office Visit 12/08/2007 8:45a Linnette Grande, 780.79 Malaise And Fatigue RN MS [employer] MACHINE OPERATOR HELPER Other V17.49 Family HX Of Other Cardiovascular Diseases 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 Office Visit 07/29/2000 10:00a Becky Conway M.D. Office Visit 07/25/2000 1:50p Joyce Cottrell RN A.N.P. Office Visit 07/18/2000 1:30p Joyce Cottrell RN A.N.P. Plan of Treatment 08/10/2018 - Linnette Giraldo RN MS FNPN63.0 Unspecified lump in unspecified breastNew Xrays:[id number] Mammogram Bilateral Diagnositic, Ordered: Ultrasound Breast Limited, Ordered: 08/10/18J11.1 Influenza due to unidentified influenza virus with other resNew Medication:Work Note - patient was seen in our office today no work 08/10/18 - 08/14/18 return to work .may return to work sooner if feeling betterOseltamivir Phosphate 75 mg - one cap twice a day x 5 daysMiscellaneous:TAMIFLU IS AN ANTIVIRAL MEDICATION MEANT TO SHORTEN THE LENGTH OF THE FLU BY 24 HRS. MUST BE STARTEDWITHIN 48 HOURS OF THE ONSET OF SX . FLU IS A VIRAL INFECTION THAT CANNOT BE TREATED BY ANTIBIOTICS. YOU CAN TREAT THE SX: COUGH MEDICATIONS FOR COUGHING, THO SOME COUGHING MAY BE HELPFUL TO CLEAR UPSECRETIONS. PUSH FLUIDS. REST MUCH POSSIBLE, DO NOT GO OUT INTO THE COMMUNITY AND INFECT OTHERS. YOU MAY BE CONTAGIOUS FOR UP TO 24 HOURS AFTER ALL YOUR SX ARE GONE. THE FLU CAN LAST FROM 3 DAYS TO 2 WEEKS. IF YOU FEEL YOU ARE NOT GETTING BETTER OR GETTING WORSE YOU WILL NEED TO BE RE EVALUATED FOR OTHER CAUSES.
[2018-08-24] MEDS ORDERED: ALTEPLASE IV SCH (09:00)
[2018-08-24] MEDS ORDERED: Magnesium Sulfate IV* 0.5 GM/ML 2 ML VIAL (1 GM) IVPB ONE (09:18)
[2018-08-24] MEDS ORDERED: Metoclopramide IV* 5 MG/ML 2 ML VIAL IV ONE (09:18)
[2018-08-24] MEDS ORDERED: Morphine VIAL* 10 MG/ML 1 ML VIAL IV ONE (09:37)
[2018-08-24] MEDS ORDERED: Morphine VIAL* 4 MG/ML VIAL (1 ml vial) ONE (09:39)
[2018-08-24 09:40] LABS: Magnesium 2.1 mg/dL (1.9-2.7)
[2018-08-24 09:56] LABS: Urine Appearance Clear; Urine Bacteria Absent (Absent); Urine Bilirubin Negative (Negative); Urine Blood 2+ (Negative); Urine Color Yellow; Urine Glucose Negative (Negative); Urine Ketones Negative (Negative); Urine Nitrite Negative (Negative); Urine Protein Negative (Negative); Urine Red Blood Cell Trace(0-2/hpf) (Absent); Urine Specific Gravity 1.009 (1.010-1.030); Urine Squamous Epithelial Cell Present (Absent); Urine Urobilinogen Negative (Negative); Urine White Blood Cell Absent (Absent)
[2018-08-24 10:45] LABS: Influenza A Molecular NEGATIVE (Negative); Influenza B Molecular NEGATIVE (Negative)
--- NOTE | 2018-08-24 11:52 | CONS ---
NEUROLOGY CONSULTATION NOTE: DATE OF CONSULT: 08/24/18 CONSULTING PROVIDER: Dr. Jannie Euceda. REASON FOR NEUROLOGICAL CONSULTATION: The patient presents with acute headache and gait imbalance. CHIEF COMPLAINT: Headache. HISTORY OF PRESENT ILLNESS: Mrs. Rosa Allen is a 37-year-old right-handed female with a past medical history significant for reported history of stroke 5 years ago where she was hospitalized at [facility] for 2 weeks; headaches; factor V Leiden mutation heterozygous (carrier) with a history of 1 miscarriage; history of tobacco use, which she has been slowly cutting down over the last 2 weeks, who presented with sudden-onset headache. The headache started yesterday on 08/23/18. She stated that the headache initiated at approximately 8:30 a.m. while she was at work. The headache was described as a constant pressure pain in the back of the head that radiates holocephalically. She does not have any photo or phonophobia, but does have nausea. She did not vomit. The headache was not a thunderclap, but it was suddenly intense to a severity of 8/10 within minutes. She did not feel any popping sensation. Sneezing, coughing, or straining does increase the headache intensity. Sitting upright also seems to worsen the headache. She denied any visual disturbance, focal weakness, or paresthesias. The patient woke up at 5 a.m. this morning with the same headache. At 5:30 a.m., she noticed that she was having significant lightheadedness and inability to get out of bed due to the pain as well as just generalized malaise. She reported gait imbalance. She denied any tinnitus or hearing loss. She denied any double vision. She has never had any similar headache in the past, but does have a history of headaches for which she typically takes ibuprofen that successfully abates her headaches. She denied any recent stressors. She does not take aspirin. She is aspirin naive. Her current NIH stroke scale was 0. A code barton was activated this morning at 7 :39 a.m. The patient was evaluated by the [facility] Telestroke. She was deemed a candidate for IV TPA and the TPA was initiated at 8:32 a.m. At 9:05, the patient developed worsening of her headaches. She has not received any medications for the headaches. She stated that this type of headache is slightly more in severity, but localized in the same area. The TPA was held for approximately 8 minutes. It was restarted again at 9:[address] head was obtained and showed no acute intracranial abnormality. I reviewed the CT head without contrast that was completed this morning at 7:42 a.m. There seems to be slight evidence of hypodensity in the occipital region on the right greater than the left. I am not quite sure if this hypodensity related to a previous stroke that she reports or this could be new. A repeat CT of the head at 9:04 did not show any intracranial hemorrhage, but did delineate this finding of the hypodensity in the occipital regions and it was also seen on the left side as well. There was no large area of infarct noted. Please note that the patient's blood pressure has been within normal range since presenting to the emergency room. She has no history of recent chemotherapy exposure. She denied any oral contraceptive use. She has had no recent traveling history. PAST MEDICAL HISTORY: section, factor V Leiden mutation heterozygous, tobacco use. PAST SURGICAL HISTORY: section. FAMILY HISTORY: No family history of stroke. Her father suffers from epilepsy recently. There is diabetes in the family history. SOCIAL HISTORY: The patient has 2 children who are healthy. 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 She has never been . She denied any alcohol or drug use. REVIEW OF SYSTEMS: A 14-point review of systems was obtained, otherwise negative except for as mentioned in the HPI. PHYSICAL EXAMINATION: Vitals: Temperature of 98.4, pulse of 87, respiratory rate of 18, oxygen saturation of 98, blood pressure of 125/88. General: Well- nourished, well-developed, young female who is alert and cooperative, in no acute distress. Head is normocephalic without obvious abnormality. Eyes: Conjunctivae/corneas are clear. The neck is supple and symmetrical with no carotid bruit. The patient did have neck pain on the left side with cervical paraspinal muscle tenderness to deep palpation. Lungs are clear to auscultation bilaterally. Cardiovascular: Regular rate and rhythm with normal S1, S2. Extremities: Normal range of motion with no cyanosis. Skin: No skin lesions or laceration. Psych: Affect is broad with slightly depressed mood. It was easy to establish rapport. Neurological Examination: Mental Status: Awake, alert, and oriented to person, place, time, and general circumstances. Speech and language including expression, naming, repetition, and comprehensions were assessed and found to be normal. Cranial Nerves: Normal confrontation testing bilaterally. Pupils are mid range and reactive to light. Normal consensual response. Extraocular muscles are intact. No ptosis. Sensation is intact in the forehead, cheeks, and jaw region bilaterally. There is no facial droop. She is able to hear throughout the history process. There is symmetrical palatal elevation. There is normal shoulder strength. Tongue is symmetrical and midline with no atrophy or fasciculation. Motor Examination: She has no pronator drift. There is 5/5 strength in the upper and lower extremities bilaterally. Reflexes: Right/left: Brachioradialis 2+/2+, biceps 2+/2+, triceps 2+/2+, patellas 2+/2+, ankle 2+/2+, plantar flexor/flexor. Sensation is intact to light touch, pinprick, and temperature sensation throughout. Normal vibration and proprioception at the great toes. Coordination : Normal [id number] and rapid alternating movements. Gait and station were not assessed due to the severity of her headaches. ASSESSMENT AND RECOMMENDATION: Mrs. Rosa Allen is a 37-year-old female who presents with acute headache and new onset lightheadedness with reported gait imbalance that started suddenly this morning. The last known well before the gait disturbance and lightheadedness was 5 a.m. This symptom onset was 5:30 a.m.. She was evaluated by the [facility] Telestroke, for which she was deemed a candidate for IV TPA. IV TPA was infused. During the infusion , the patient developed increase in headaches, but she has not received any medication for her presenting headache. Stat repeat CT of the head was obtained and showed no evidence of acute intracranial hemorrhage. However, it is important to note that there are some areas of hypodensity on the CT of the head, especially seen in the occipital region right more than left. Given the new-onset headaches, the differential diagnosis here consists of possibly posterior circulatory stroke involving the STONE PRODUCT FABRICATOR vascular distribution. This may occur due to thrombosis or [id number] emboli from possible proximal spontaneous dissection of the vertebral artery. Other differential diagnosis includes cerebrovenous sinus thrombosis given her history of factor V Leiden mutation concomitant with her chronic history of tobacco use. Lastly, although unlikely given her normal blood pressure, but reversible posterior leukoencephalopathy syndrome, that as well as reversible cerebral vasoconstriction syndrome are all on the differential given her age as well as clinical presentation. I do not suspect this is migraine headache. The patient does have a history of cluster headaches, but I do not see any autonomic dysfunction or unilateral pain as a presentation. The sensitivity for a CT head within the first 24 hours is extremely high, thus I do not have any suspicion for subarachnoid hemorrhage. RECOMMENDATION: The patient is receiving IV TPA at this time. The risk, benefit, and alternative to IV TPA infusion was discussed with the patient by the telestroke neurologist. The patient consented to the procedure. At this time, please admit the patient to the ICU for post TPA close monitoring. Please follow the strict guideline and protocol for post TPA vital signs and neuro checks. An MRI of the brain was ordered, but I also added an MRV of the head, MRA of the head, and MRA of the neck. The MRV was ordered with contrast. Please obtain a 2D transthoracic echo with bubble study to look for PFO. If she does have a PFO, please obtain an ultrasound of the lower extremity to evaluate for DVT given her risk factor of hypercoagulable state in the setting of factor V Leiden mutation. She is to be placed on telemetry. Please check a lipid panel, TSH, and vitamin B12 level. Hold all antithrombotic agents for the next 24 hours. No need for urinary catheterization. Keep her blood pressure within range of systolic blood pressure of 120 - less than 160. Hold off on PT/OT/RESAW MACHINE OPERATOR evaluate and treat depending on how she responds to the treatment for the headache. I do agree on starting Reglan, Benadryl, magnesium oxide for her headaches. She should not be receiving any NSAID therapy. Please perform a bedside swallow evaluation. VTE prophylaxis with SCDs for now. No need for anticoagulation therapy given that she does not have any history of atrial fibrillation or documented arrhythmia. Dr. Juan M Saenz will cover the neurology service on Tuesday and I will be back on Tuesday. I will discuss the case with him in detail. TIME SPENT: Sixty minutes of critical care time was spent evaluating the patient; obtaining history; examining the patient; interpreting CT head results ; discussing the care with the patient, her mother, and Dr. Euceda. Education and counseling regarding the treatment plan as mentioned above were discussed with the family. We cannot do a lumbar puncture at this time because we need further testing. The patient does not have any fevers or nuchal rigidity, therefore I do not suspect that she has meningitis. We will continue to follow. [id number]/[facility] #: [id number] ADDENDUM: Reviewed the images. There is no evidence of stroke or PRES on MRI. There is no evidence of dissection or cerebral venous thrombosis. The patient stated that morphine helped with her headaches. The headache severity decreased to 4/ 10 but now is slowly creeping up to 6/10. Started her on Solu-Medrol 250 mg IV x 1. At this time, I suspect she has a severe complicated migraine. I don't think she has viral meningitis since she is afebrile and has normal white count. She reported a similar episode in the past and was hospitalized in [facility] for severe headache for 2 weeks. We need to please obtain records from [facility] to see what was done for her there, and what was her final diagnosis. Also, she stated that her headache resolved after getting a lumbar puncture. We can't do an LP at this time since she received IV tPA this morning. However , if she still has headaches tomorrow, please order an LP to be done by anesthesia (I will not be available). Dr. Saenz will round on the patient tomorrow. Discussed with Dr. Hayes. SANAM
[2018-08-24] MEDS ORDERED: Gadoteridol* (CONTRAST) 279.3 MG/ML 10 ML IV ONE (11:57)
[2018-08-24] MEDS ORDERED: Perflutren Lipid Microsphere* 3 ML VIAL ONE (14:09)
[2018-08-24] MEDS ORDERED: methylPREDNISolone 125 MG* 2 ML VIAL IV ONE (15:15)
[2018-08-24] MEDS ORDERED: Acetaminophen TAB* 325 MG PO PRN (16:45)
[2018-08-24] MEDS ORDERED: Morphine VIAL* 4 MG/ML VIAL (1 ml vial) IV PRN (16:54)
[2018-08-24] MEDS: oxyCODONE TAB* 5 MG TAB PO PRN (17:12)
--- NOTE | 2018-08-24 17:46 | ECHO ---
Patient: KINDRA SCHULZ [facility] Rec#: [id number] : 1980 Date: 08/24/2018 Age: 37y Height: 168 cm / 66.1 in Weight: 63.5 kg / 140.0 lbs Sex: F BSA: 1.72 Room#: ICU 8 Admit Date#: 08/24/2018 Type: Inpatient Referring: James Hayes Reading: Earnest Easley MD Superintendent Logging: Zaira Parham RDCS,RDMS Transthoracic Echocardiogram Indication: CVA BP: 90/63 HR: 89 Rhythm: NSR Findings History: Factor V Leiden, CVA, smoker Technical Comments: The study is technically limited due to poor acoustic windows. Left Ventricle: The left ventricular chamber size is normal. There is no left ventricular hypertrophy. There is normal left ventricular systolic function. The estimated ejection fraction is 55-60%. Normal left ventricular diastolic filling is observed. Left Atrium: The left atrial chamber size is normal. Right Ventricle: The right ventricular chamber size and systolic function are within normal limits. Right Atrium: The right atrial cavity size is normal. The bubble study is negative. A patent foramen ovale is not demonstrated with color Doppler and agitated contrast. Aortic Valve: The aortic valve structure is not well visualized. There is no evidence of aortic valve thickening. Systolic excursion of the aortic valve is normal. There is no evidence of aortic regurgitation. There is no evidence of aortic stenosis. Mitral Valve: The mitral valve leaflets appear normal. There is no evidence of mitral regurgitation. There is no evidence of mitral stenosis. Tricuspid Valve: The tricuspid valve leaflets are normal. There is mild tricuspid regurgitation. No pulmonary hypertension is noted. Pulmonic Valve: The pulmonic valve structure is not well visualized. There is no evidence of pulmonic regurgitation. Pericardium: There is no significant pericardial effusion. Aorta: The aortic root appears normal. There is no dilatation of the aortic arch. Pulmonary Artery: The main pulmonary artery is not well visualized. Venous: The inferior vena cava is dilated. There is less than 50% respiratory change in the inferior vena cava dimension. Contrast: Definity was used to optimize study. A total of 3 ml ws used. Intravenous agitated saline contrast was used to assess intracardiac shunting. Images 80 and 81. Summary: There was not any prior study for comparison. Conclusions There is normal left ventricular systolic function. The estimated ejection fraction is 55-60%. The bubble study is negative. There is mild tricuspid regurgitation. The inferior vena cava is dilated. There is less than 50% respiratory change in the inferior vena cava dimension. Measurements Name Value Normal Range RVIDd (AP) 2D 1.7 cm (0.9 - 2.6) RVDdMajor (2D) 3.1 cm (2.2 - 4.4) RAd ISD 4CH 3.8 cm (3.4 - 4.9) RA (A4C)W 4 cm (2.9 - 4.6) IVSd (2D) 0.7 cm (0.6 - 1) LVPWd (2D) 0.8 cm (0.6 - 1) LVIDd (2D) 4.4 cm (3.6 - 5.4) LVIDs (2D) 3.2 cm - LV FS (2D) 27 % (25 - 45) Aortic Annulus 2 cm (1.4 - 2.6) Ao root diameter (2D) 2.6 cm (2.1 - 3.5) Aortic arch 2.5 cm (1.8 - 3.4) LA dimension (AP) 2D 2.5 cm (2.3 - 3.8) LAd ISD 4CH 4.2 cm (2.9 - 5.3) LA ISD 4CH W 4.1 cm (2.5 - 4.5) Name Value Normal Range MV E-wave Vmax 0.9 m/sec - MV deceleration time 129 msec - MV A-wave Vmax 0.5 m/sec - MV E:A ratio 1.6 ratio - LV septal e' Vmax 0.11 m/sec - LV lateral e' Vmax 0.13 m/sec - LV E:e' septal ratio 8 ratio - LV E:e' lateral ratio 7 ratio - Name Value Normal Range AV Vmax 0.8 m/sec - AV VTI 17 cm - AV peak gradient 2.6 mmHg - AV mean gradient 2 mmHg - LVOT Vmax 0.7 m/sec - LVOT VTI 14 cm - LVOT peak gradient 2 mmHg - LVOT mean gradient 1 mmHg - CAIN Vmax 1 m/sec - Name Value Normal Range TR Vmax 2 m/sec - TR peak gradient 16 mmHg - RAP 3 mmHg - RVSP 19 mmHg - IVC diameter 2.6 cm - Name Value Normal Range PV Vmax 0.5 m/sec - PV peak gradient 1 mmHg -
--- NOTE | 2018-08-24 17:48 | HP ---
History of Present Illness - History of Present Illness Reason for Visit: Suspect acute CVA s/p tPA History of Present Illness: CRITICAL CARE INITIAL NOTE 37 y/o F with hx/o heterozygous Factor V Leiden deficiency, previous hx/o possible CVA, 2 x molar pregnancies, pleuriscy BIBEMS to ED with acute onset of severe diffuse headache with associated disorientation, shaking of head, and involuntary leaning on the L side. Patient has had the headache for about 2 days and nearly feel in the shower without any head or other trauma. Other associated sx: shortness of breath, dizziness described as room spinning. Adriano stoll was called at 0740 with a NIH score 0. 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: CVA, Migraine - Past Surgical History Past Surgical History: - Past Family History Family History: DM, Hypertension - Past Social History Smoke: <1 pack per day Alcohol: None Drugs: None Lives: With Family Review of Systems - Review of Systems Eyes: Positive: Pain, Vision Change Respiratory: Positive: Shortness of Breath Cardiovascular: Positive: Palpitations Gastrointestinal: Positive: Nausea Neurological: Positive: Weakness, Incoordination - Medications/Allergies Allergies/Adverse Reactions: Allergies Allergy/AdvReac Type Severity Reaction Status Date / Time No Known Allergies Allergy Verified 06/22/18 15:56 Medications: Current Medications Acetaminophen (Tylenol Tab*) 650 mg PO Q6H PRN PRN Reason: FEVER/PAIN Morphine Sulfate (Morphine Vial*) 2 mg IV Q6H PRN PRN Reason: PAIN Oxycodone HCl (Roxycodone Tab*) 2.5 mg PO Q4H PRN PRN Reason: PAIN Last Admin: 08/24/18 17:12 Dose: 2.5 mg Exam - Exam Vital Signs: Vital Signs (72 hours) 08/24/18 08/24/18 08/24/18 07:52 08:27 09:19 Temperature 98.4 F Pulse Rate 87 91 86 Respiratory 18 18 19 Rate Blood Pressure 125/88 (mmHg) O2 Sat by Pulse 98 97 98 Oximetry 08/24/18 08/24/18 08/24/18 09:43 09:46 09:50 Temperature 98.3 F Pulse Rate 79 73 Respiratory 18 15 16 Rate Blood Pressure 110/73 110/73 (mmHg) O2 Sat by Pulse 93 96 Oximetry 08/24/18 08/24/18 08/24/18 10:00 10:16 10:49 Temperature 97.9 F Pulse Rate 67 82 63 Respiratory 18 16 16 Rate Blood Pressure 96/60 90/63 (mmHg) O2 Sat by Pulse 92 91 96 Oximetry 08/24/18 08/24/18 13:07 14:00 Temperature 97.4 F Pulse Rate 81 Respiratory 24 20 Rate Blood Pressure 99/75 (mmHg) O2 Sat by Pulse 95 Oximetry General: Alert, Oriented x3, Cooperative, Mild distress, Other - involuntary shaking of the head and leaning on the left side HEENT: Atraumatic, PERRLA, EOMI Lungs: Clear to auscultation, Normal air movement Cardiovascular: Regular rate, Normal S1, Normal S2 Abdomen: Normal bowel sounds, Soft, No tenderness, No hepatospenomegaly Extremities: No clubbing, No cyanosis, No edema Skin: No rashes, No breakdown Neurological: Normal gait, Normal speech, Cranial nerves 3-12 NL Psych/Mental Status: Mental status NL Assessment/Plan - Assessment/Plan Assessment: 37 yo F with tobacco use, FVL (heterozygous), hx/o migraines, and possible hx.o CVA presenting with severe TAVERA and shaking of head and L sided involuntary lean s /p tpa for suspect CVA Plan: # Acute CVA(ischemic) with gait abnormalities and severe TAVERA s/p tpa at 0900 repeat Brain MRI 08/25 after 0900 pain management with APAP, prn oxycodone, prn morphine ST/PT/OT evaluation pending Check HGAIC and lipid panel in the am No arterial sticks, minimize blood draws and instrumentation ASA as per neurology after 24 hours Critical care issues: post tpa monitoring Critical care time: 65 minutes Dispo: monitor in ICU. Possible downgrade tomorrow if no events >24 hours
[2018-08-25] MEDS: oxyCODONE TAB* 5 MG TAB PO PRN (11:07)
[2018-08-25] MEDS ORDERED: Magnesium Sulfate 1 GM IV* 1 GM/100 ML BAG IV ONE (14:30)
--- NOTE | 2018-08-25 16:15 | PN ---
Date of Service: 08/25/18 - TRANSFER NOTE Critical Care Services: 37 y/o F with hx/o heterozygous Factor V Leiden deficiency, previous hx/o possible CVA, 2 x molar pregnancies, pleurisy BIBEMS to ED with acute onset of severe diffuse headache with associated disorientation, shaking of head, and involuntary leaning on the L side. Adriano stoll was called at 0740 with a NIH score 0. s/p tpa at 0900 on 08/24 Today, patient reports she is back to her baseline. She denies headache, bleeding, tolerated oral intake. She did have intermittent SOB associated with tightness in her throat that self resolved Vital Signs: Temp Pulse Resp BP SpO2 FiO2 96.7 F 93 18 119/81 94 08/25/18 15:38 08/25/18 15:38 08/25/18 15:38 08/25/18 15:38 08/25/18 15:38 Physical Exam: General: Alert, Oriented x3, Cooperative, NAD HEENT: Atraumatic, PERRLA, EOMI Lungs: Clear to auscultation, Normal air movement Cardiovascular: Regular rate, Normal S1, Normal S2 Abdomen: Normal bowel sounds, Soft, No tenderness, No hepatospenomegaly Extremities: No clubbing, No cyanosis, No edema Skin: No rashes, No breakdown Neurological: Cranial nerves 2-12 NL Psych/Mental Status: Mental status NL Fluid Balance (Past 24 Hours): I= O= Net Intake & Output 08/23/18 08/24/18 08/25/18 08/26/18 06:59 06:59 06:59 06:59 Intake Total 2160 3140 Output Total 950 Balance 1210 3140 Weight 134 lb 14.766 oz Intake: IV Fluids 1320 NS (0.9%) 0 Oral 840 3140 Output: Urine 950 Other: Estimated Void Medium Date of Last Bowel 08/25/18 Movement # Bowel Movements 3 Estimated Stool Amount Medium # Voids 3 ADLs: Meal Record Start: 08/24/18 13: 07 Freq: ,,18 Status: Complete Protocol: Created 08/24/18 13:07 System (Rec: 08/24/18 13:07 System [id number]) Document 08/24/18 18:00 [id number] (Rec: 08/24/18 22:04 [id number] ICU-C06) Document 08/25/18 09:45 [id number] (Rec: 08/25/18 09:49 [id number] ICU-C14) Intake and Output Start: 08/24/18 13: 07 Freq: Q1HR Status: Complete Protocol: Created 08/24/18 13:07 System (Rec: 08/24/18 13:07 System [id number]) Document 08/24/18 14:00 [id number] (Rec: 08/24/18 14:42 [id number] ICU-C06) Document 08/24/18 16:00 [id number] (Rec: 08/24/18 19:40 [id number] ICU-C56) Document 08/24/18 17:00 [id number] (Rec: 08/24/18 19:43 [id number] ICU-C56) Document 08/24/18 18:00 [id number] (Rec: 08/24/18 19:43 [id number] ICU-C56) Document 08/24/18 19:00 [id number] (Rec: 08/24/18 22:04 [id number] ICU-C06) Document 08/24/18 22:00 [id number] (Rec: 08/24/18 22:06 [id number] ICU-C06) Document 08/24/18 23:00 [id number] (Rec: 08/25/18 00:15 [id number] ICU-C06) Document 08/25/18 00:00 [id number] (Rec: 08/25/18 00:51 [id number] ICU-C06) Document 08/25/18 01:00 [id number] (Rec: 08/25/18 02:41 [id number] ICU-C06) Document 08/25/18 02:00 [id number] (Rec: 08/25/18 02:42 [id number] ICU-C06) Document 08/25/18 03:00 [id number] (Rec: 08/25/18 03:49 [id number] ICU-C06) Document 08/25/18 05:00 [id number] (Rec: 08/25/18 05:15 [id number] ICU-C06) Document 08/25/18 06:00 [id number] (Rec: 08/25/18 06:18 [id number] ICU-C06) Document 08/25/18 07:00 [id number] (Rec: 08/25/18 10:00 [id number] ICU-C15) Document 08/25/18 09:00 [id number] (Rec: 08/25/18 10:37 [id number] ICU-C15) Document 08/25/18 11:00 [id number] (Rec: 08/25/18 12:31 [id number] ICU-C07) Document 08/25/18 12:47 [id number] (Rec: 08/25/18 12:47 [id number] ICU-C15) Intake and Output Start: 08/25/18 12: 47 Freq: 06,14,22 Status: Active Protocol: Created 08/25/18 12:47 [id number] (Rec: 08/25/18 12:47 [id number] ICU-C15) Studies: Patient Name: KINDRA SCHULZ Medical Record#: [id number] Ordering Physician: James Hayes MD Acct.#: [id number] : 1980 Age: 37 Sex: F Location: INTENSIVE CARE UNIT Exam Date: 08/25/181126 ADM Status: ADM IN Order Information: CT BRAIN WO Accession Number: [id number] CPT: 68025 INDICATION: Status post TPA. COMPARISON: Comparison is made with a prior study from August 24, 2017. TECHNIQUE: Contiguous axial sections of the brain were obtained from the skull base to the vertex without contrast. FINDINGS: The ventricles, cisterns and sulci are within normal limits. No significant focal abnormality or mass effect is seen. There is no evidence for hemorrhage. There are nodular areas in both maxillary sinuses measuring up to 2 cm in size consistent with mucous retention cysts or polyps. There is minimal mucosal thickening within the maxillary and ethmoid sinuses. The paranasal sinuses and mastoid air cells otherwise appear clear. IMPRESSION: NO EVIDENCE FOR ACUTE INTRACRANIAL ABNORMALITY. <Electronically signed by Tyrese Shine MD in OV> 08/25/18 1212 Dictated By: Tyrese F Massi MD Dictated Date/Time: 08/25/18 1212 Transcribed Date/Time: 08/25/18 1204 Copy to: CC:Maged Strong MD; Kvng Ken MD; Hector Hoff MD; Luis Angel Donohue CLINICAL ACADEMIC ALLERGIST; Nirav Shah MD; James Hayes MD; Juan M Saenz MD; Angelika Traylor MD; Robert Delgado MD; Nohemy Bolton CLINICAL ACADEMIC ALLERGIST; Nick Pryor MD; Nick Pham MD; Shorty Harkins MD; No Primary Care Phys,NOPCP ; Freedom Cardenas MD ; Pavel Paul MD; Reginaldo Lynch MD; Zaira Torre CLINICAL ACADEMIC ALLERGIST; Zaira Cleaning MD; Ana Ortiz MD Imaging - [facility] Imaging - [facility] Imaging - [facility] [address] [address] ph ([phone]) ph ([phone]) ph ([phone]) This report is only to be considered final once signed by the Provider(s) as displayed in the "<Electronically Signed by >" field (s). Absence of a signature indicates the report is in a draft status and still needs to be finalized. In the event this document was created by someone other than the signing Provider, the individual initiating the document will be listed in the "Entered by:" or "Dictated by:" branham. 1 of 1 Nutrition: Regular diet Impression: 37 yo F with tobacco use, FVL (heterozygous), hx/o migraines, and possible hx.o CVA presenting with severe TAVERA and shaking of head and L sided involuntary lean s /p tpa for suspect CVA Plan: # Acute CVA(ischemic) with gait abnormalities and severe TAVERA s/p tpa at 0900 03/[address] negative Patient is back to baseline neuro status Pain is well controlled. Currently, on prn APAP, oxycodone, and morphine Passed bedside swallow and patient has tolerated an oral intake PT/OT evaluation pending Check HGAIC and lipid panel in the am ASA as per neurology after 24 hours Suspect patient will benefit with prn medications for migraines Critical care issues: post tpa monitoring Critical care time: 35 minutes Dispo: Stable to transfer to
[2018-08-25 16:23] LABS: C Reactive Protein 4.12 mg/L (<8.01)
[2018-08-25] MEDS ORDERED: NS 0.9% 500 ML* 500 ML IV ONE (16:35)
--- NOTE | 2018-08-25 16:45 | CONS ---
NEUROLOGY FOLLOWUP CONSULTATION: DATE OF FOLLOWUP: 08/25/18 DYE BLENDER: Dr. Hayes. LOCATION: She is an inpatient. ICU bed 8. CHIEF COMPLAINT: Headache. INTERVAL HISTORY: Since yesterday, Rosa woke up with the headache again this morning, but it resolved. She received some morphine and currently she is headache free. I went over the history with her. She started to feel ill the day prior to admission. She went to work and while at work started to get a headache. It intensified over the course of the day, was pretty intense by the night before admission. She had some nausea with it, but no other symptoms. She did not vomit. She woke up in the middle of the night with even worse headache. She woke up in the morning to get ready for work. In the shower, she felt confused as though she did not know what she was supposed to do next. She decided that she just was unable to think clearly and felt somewhat dizzy and so presented for medical care. She was evaluated by Telestroke and was felt to possibly having a cerebrovascular event and was given TPA. She said that 5 years ago she was hospitalized at [facility] for 2 weeks with a severe headache. She said it was very similar to this and that they could not come up with a clear diagnosis. The headache would go away and then come back again and she said cluster headache was brought up. She said she had a spinal tap and her headache transiently went away. However, it recurred after 2 weeks. She was discharged on sumatriptan, magnesium, and riboflavin. There is another medication as well, but she does not recall the name of. She said she had perhaps two more bad headaches after that, treated with sumatriptan and she has not had any others for about 5 years. She gets some occasional headache, which goes away with ibuprofen, the last time she took ibuprofen for headache was about 2 or 3 months ago. There is no family history of headache. She had a flu-like syndrome about 2 weeks ago. It resolved about a week and a half ago. Both of her children had it. She had a sore throat and fevers up to 103. She developed a dry cough yesterday. She feels like there is some junk down in her lungs, but she cannot bring anything up. She has not had any chills or sweats in the last few days. She does not noticed any skin rashes. No intestinal issues other than the nausea. No shortness of breath. She is a smoker, she is not on control, she is heterozygous for Leiden factor V. There is no history of diabetes or hypertension or heart disease. PAST MEDICAL HISTORY: Her past medical history is notable for the hospitalization 5 years ago, remote history of pneumonia. She has had a section. FAMILY HISTORY: Notable for hypertension and diabetes. SOCIAL HISTORY: She lives at home with her 11 and 13-year-old and . She smokes. She rarely drinks alcohol. 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 PHYSICAL EXAM: She is well hydrated and well nourished. Skin is warm and dry. I do not see any rashes. Most recent temperature 98.9, temporal skin; blood pressure 104/60; heart rate running about 100 and in sinus on the monitor. Oxygen saturation is 95% on room air. Lungs are clear bilaterally. Heart is in a regular rhythm without murmurs. Neck is supple. There is no meningismus. There are no cervical bruits. Oral mucosa is moist with bilateral pharyngeal erythema. No exudates. Neurological exam: Pupils, fundi, and eye movements are normal. Optic disks are sharp bilaterally, but no venous pulsations. Eye movements are normal and nonpainful. There was no ptosis. Visual branham are full to confrontation. Facial musculature and facial sensation are intact and symmetric. Palate and tongue otherwise appear normal and speech is clear without dysarthria. Hearing is intact. Motor exam reveals normal muscle tone and strength proximally and distally in upper and lower extremities. There is no drift of the limbs. There is no suspension, action, or rest tremor. Sensory exam in the limbs is intact to light touch, pin discrimination, and vibration. Reflexes are brisk and symmetric in upper and lower extremities. Plantar responses are flexor bilaterally. She is alert and oriented and a good detailed historian. Memory is intact and language is fluent. She has adequate attention, concentration, and fund of knowledge. DIAGNOSTIC STUDIES/LAB DATA: Includes a normal CBC at admission including white blood cell count, normal INR, and PTT, normal chemistry profile other than lactic acid 2.3. Cholesterol is 136 and LDL 76. Urinalysis notable for 2 + blood and otherwise unremarkable urinalysis. Influenza A and B rapid test was negative. Imaging: Notable for a normal CT scan of the brain today, which I reviewed and I agree with. MRI scan of the brain and MR angiogram and MR venogram of the brain and neck are all unremarkable. Echocardiogram was also unremarkable with no evidence of a PFO. IMPRESSION: Impression is that of severe headache of unclear etiology. There is no evidence of intracranial hemorrhage, ischemic event, posterior reversible encephalopathy syndrome, or hypertensive crisis. She had a similar syndrome 5 years ago without a clear diagnosis as best as I can sort out. She may have a viral illness causing the severe headache, but she does not have a stiff neck, fever, or elevated white blood cell count. She did have an elevated lactic acid at presentation yesterday and so, I would like to repeat that as well as obtain some other blood work including sedimentation rate, CRP, EBV titers, and we will also do a 24-hour urine for catecholamines. Give her some IV magnesium for now and she is going to be transferred to the regular floor. Dr. Shah will be back on service tomorrow and can followup. [id number]/[facility] #: [id number] SANAM
[2018-08-25] MEDS: NS 0.9% 1000 ML** 1,000 ML IV SCH (20:06)
[2018-08-26] MEDS: NS 0.9% 1000 ML** 1,000 ML IV SCH (06:07)
[2018-08-26 07:30] LABS: HDL Cholesterol 37.7 mg/dL
[2018-08-26 12:31] VITALS: BP 106/68
--- NOTE | 2018-08-26 13:21 | PN ---
Subjective Date of Service: 08/26/18 Length of Stay: 2 Days Neurology is following for headache. Interval History: She has no headache today. She had some mild pressure pain behind her head earlier today. She has no visual disturbance, nausea, or vomiting. She feels lethargic and tired. She is concerned about going back to work so soon from this hospitalization. She was apparently positive for the flu two weeks ago. Lactic acid level is normal. Review of Systems: Denied CP, SOB, or palpitations. Objective Active Medications: Acetaminophen (Tylenol Tab*) 650 mg PO Q6H PRN PRN Reason: FEVER/PAIN Last Admin: 08/25/18 11:07 Dose: 650 mg Sodium Chloride (Ns 0.9% 1000 Ml) 1,000 mls @ 100 mls/hr IV PER RATE ISA Stop: 08/27/18 03:44 Last Admin: 08/26/18 06:07 Dose: 100 mls/hr Magnesium Oxide (Magox 400 Tab*) 400 mg PO DAILY ISA Morphine Sulfate (Morphine Vial*) 2 mg IV Q6H PRN PRN Reason: PAIN Oxycodone HCl (Roxycodone Tab*) 2.5 mg PO Q4H PRN PRN Reason: PAIN Last Admin: 08/25/18 11:07 Dose: 2.5 mg Riboflavin (Vitamin B-2 (Nf)) 400 mg PO DAILY [facility] Vital Signs 08/25/18 08/25/18 08/25/18 15:12 15:38 19:12 Temperature 96.7 F 96.7 F 99.1 F Pulse Rate 93 93 108 Respiratory 18 18 22 Rate Blood Pressure 119/81 119/81 107/68 (mmHg) O2 Sat by Pulse 94 94 96 Oximetry 08/25/18 08/25/18 08/26/18 20:10 23:59 04:27 Temperature 98.6 F 98.1 F Pulse Rate 85 78 Respiratory 18 16 16 Rate Blood Pressure 98/58 102/62 (mmHg) O2 Sat by Pulse 95 95 Oximetry 08/26/18 08/26/18 08/26/18 07:57 08:23 12:06 Temperature 98.2 F 98.3 F Pulse Rate 87 85 Respiratory 20 16 14 Rate Blood Pressure 96/55 106/68 (mmHg) O2 Sat by Pulse 95 95 96 Oximetry Intake and Output Last 24 Hours 0308/25/18 08/26/18 08/27/18 06:59 06:59 06:59 07:59 Intake Total 2160 5500 240 Output Total 950 500 Balance 1210 5000 240 Weight 134 lb 14.766 oz Intake: IV Fluids 1320 1490 NS (0.9%) 0 1490 Oral 840 4010 240 Output: Urine 950 500 Other: Estimated Void Medium Date of Last Bowel 08/25/18 Movement # Bowel Movements 3 Estimated Stool Amount Medium # Voids 3 Oxygen Devices in Use Now: None Neurology Exam: General: well nourished, well developed. Alert, cooperative, no apparent distress. HEENT: normocephalic, without obvious abnormality. Conjunctivae/corneas clear. Lungs: non-labored respirations with no wheezing or rhonchi CV: regular rate and rhythm, radial pulses 2+ symmetric. Psych: affect-broad and normal mood. Easy to establish rapport. Neurological examination: Mental status: awake; alert and oriented to person, place, time, & general circumstances. Normal speech and language. Cranial nerves: PERRL, EOM-I, no facial asymmetry. Motor (R/L): no abnormal movements, no pronator drift. Normal tone. Strength ( R/L): 5/5 bilaterally. Reflexes: symmetric 1+ throughout. Sensation is intact to light touch throughout. Coordination: normal finger to nose and rapid alternating movements. Gait & Station: narrow based; normal stance and gait. No ataxia. Result Diagrams: 08/24/18 07:58 08/24/18 07:58 Additional Lab and Data: 08/24: Brain CT head - no acute intracranial disease 08/24-08/25: MRI brain without contrast, MRA head without contrast, MRA neck without contrast, MRV with contrast- no evidence of stroke, demyelinating disease, PRES, white matter changes, or cerebral venous thrombosis. Microbiology and Other Data: Microbiology 08/24/18 13:32 Nasal Screen MRSA (PCR) - Final Nasal Mrsa Not Detected 08/24/18 10:06 Influenza Types A,B Antigen - Final Nasal Specimen received for Influenza A/B Molecular testing Assessment/Plan 1. Severe headache that has resolved in the setting of recent upper respiratory viral illness (possible mild self limiting viral meningitis). She has elevated lactic acid level on presentation which raises the suspicion for rare conditions like MELAS. She has no white matter disease or stroke. She has no family history of severe migraine. No need for anti-platelet therapy since I don't suspect her presentation was related to stroke or TIA. She should continue taking magnesium and riboflavin supplements. She should start supplementing with CoQ 10. Follow-up with neurology as an outpatient. We will arrange an appointment within 4-6 weeks. Neurology will sign off. Please contact me for any questions or concerns.
[2018-08-27] MEDS ORDERED: Magnesium Oxide TAB* 400 MG PO SCH (09:00)
[2018-08-27] MEDS ORDERED: Riboflavin (B2) (NF) 100 MG TAB PO SCH (09:00)
--- NOTE | 2018-08-27 11:32 | DS ---
CC: Dr. Rosa Woods; Dr. Juan M Saenz DISCHARGE SUMMARY: DATE OF ADMISSION: 08/24/18 DATE OF DISCHARGE: 08/26/18 PRIMARY DIAGNOSIS: Complicated migraine. SECONDARY DIAGNOSES: 1. Heterozygous factor V Leiden deficiency. 2. History of molar x2. 3. Pleurisy. 4. History of tobacco abuse. MEDICATIONS ON DISCHARGE: 1. Magnesium oxide 400 mg p.o. q. day. 2. Riboflavin 400 mg p.o. q. day. HOSPITAL COURSE: A 37-year-old woman with history of at least one other episode of severe headache and neurologic symptoms, was admitted to the emergency department with severe headache, shaking of her head and involuntary leaning to the left side. She also had some disorientation. She was evaluated by Telestroke consult with the [facility] and after a negative head CT, was given TPA for possible stroke. She was then evaluated by Dr. Shah of Neurology. She thought the patient likely had a migraine with neurologic complications. Her symptoms did resolve shortly after the emergency room stay. The patient had no complications from the TPA, no hemorrhage. Repeat head CT at 9 o'clock in the morning on 08/25/15 showed no stroke, no hemorrhage. MRI of the brain on 08/24/18 was completely normal. 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 No carotid stenosis or dissection. No dural sinus thrombus. Following protocol for post-TPA patients, this patient had a third head CT on , which was also negative for stroke and hemorrhage. Her headache resolved after treatment with oxycodone p.r.n. for pain. She did have a similar episode 5 years ago, but does not typically have migraines. She actually described that episode 5 years ago that she had several weeks of headaches in a cluster at that time. She has not seen a neurologist in the recent past and recently established with Dr. Woods in [place]. She does report that she had a recent influenza bout, which she recovered from a few days prior to this admission. She quit smoking when she had the flu and has not smoked in 2 weeks. The patient is advised to continue efforts with smoking cessation. RECOMMENDATIONS: Recommendations for discharge her to follow up with her primary care doctor, Dr. Woods and to see Neurology. She may have cluster headaches and may benefit from a steroid treatment or high-flow oxygen if she has further headaches. I believe triptans are contraindicated because of the neurologic complications with her migraines. She was sent home on riboflavin and B2, which she had used 5 years ago for 6 months when she had a previous episode and saw Neurology in [place]. DISPOSITION: To home. ACTIVITY: As tolerated. She should not go back to work for 3 more days. DIET: Regular. TIME SPENT: I spent 35 minutes in the discharge process for this patient on the day of discharge. [id number]/[facility] #: [id number] SANAM
== END 2018-08-26 15:46 | disposition home or self-care (01) | DRG 103 ==
LOC: ED 07:39 → ICU 09:06 → MEDTELE 08-25 12:57
PROVIDERS: ADMIT Internal Medicine Pulmonary Disease; ATTEND Internal Medicine
DX: G43.109 Migraine with aura, not intractable, without status migrainosus (principal); D68.51 Activated protein C resistance; F17.210 Nicotine dependence, cigarettes, uncomplicated; R40.2412 Glasgow coma scale score 13-15, at arrival to emergency department; R09.1 Pleurisy; R29.700 NIHSS score 0; Z86.14 Personal history of Methicillin resistant Staphylococcus aureus infection; Z83.3 Family history of diabetes mellitus; Z86.73 Personal history of transient ischemic attack (TIA), and cerebral infarction without residual deficits; Z82.49 Family history of ischemic heart disease and other diseases of the circulatory system
CPT/HCPCS: 36415; 70450; 70544; 70546; 70547; 70551; 71045; 80053; 80061; 81003; 81015; 82550; 83036; 83605; 83735; 84484; 84702; 85025; 85610; 85652; 85730; 86140; 86663; 86850; 86900; 86901; 87641; 93005; 93306; 99285; A9270-GY; A9579; C8929; G8978-GP-CI; G8979-GP-CI; G8987-GO-CI; G8988-GO-CI; G8989-GO-CI; J2270; J2765; J2930; J2997; J3475

== ENCOUNTER 2019-01-06 14:47 | Emergency (ER) | payer OTHER ==
[2019-01-06 15:01] VITALS: BP 108/69
[2019-01-06] MEDS ORDERED: Ibuprofen TAB* 600 MG PO ONE (15:42)
--- NOTE | 2019-01-06 15:47 | UC ---
Lower Extremity/Ankle HPI - HPI Summary HPI Summary: Stepped off her jeep at work and twisted left ankle and then FOOSh-and has bilateral wrist pain - History of Current Complaint Chief Complaint: UCLowerExtremity Stated Complaint: ANKLE AND WRIST INJURY Time Seen by Provider: 01/06/19 15:03 Hx Obtained From: Patient Hx Last Menstrual Period: [id number] ?: No Onset/Duration: Sudden Onset, Lasting Minutes - happened aboit 1 hour ago Pain Intensity: 7 Pain Scale Used: 0-10 Numeric Aggravating Factor(s): Standing, Ambulation Alleviating Factor(s): Nothing Able to Bear Weight: Yes Related History: Occupational Injury - Allergies/Home Medications Allergies/Adverse Reactions: Allergies Allergy/AdvReac Type Severity Reaction Status Date / Time No Known Allergies Allergy Verified 01/06/19 15:01 PMH/Surg Hx/FS Hx/Imm Hx Previously Healthy: Yes Other History Of: Negative For: HIV, Hepatitis B, Hepatitis C, Anticoagulant Therapy - Surgical History Surgical History: Yes Surgery Procedure, Year, and Place: 2006, [facility]. R KNEE, [facility], 17 YRS AGO - Family History Known Family History: Positive: Hypertension, Diabetes Negative: Respiratory Disease - Social History Occupation: Employed Full-time Lives: With Family Alcohol Use: None Substance Use Type: None Smoking Status (MU): Heavy Every Day Tobacco Smoker Type: Cigarettes Amount Used/How Often: 1/2 PPD Have You Smoked in the Last Year: Yes Household Exposure Type: Cigarettes - Immunization History Most Recent Influenza Vaccination: NONE Most Recent Tetanus Shot: UTD Most Recent Pneumonia Vaccination: N/A Review of Systems All Other Systems Reviewed And Are Negative: Yes Constitutional: Positive: Negative Skin: Positive: Negative Eyes: Positive: Negative ENT: Positive: Negative Respiratory: Positive: Negative Cardiovascular: Positive: Negative Gastrointestinal: Positive: Negative Genitourinary: Positive: Negative Motor: Positive: Negative Neurovascular: Positive: Negative Musculoskeletal: Positive: Arthralgia - lateral left ankle, and bialteral wrist pain Neurological: Positive: Negative Psychological: Positive: Negative Is Patient Immunocompromised?: No Physical Exam Triage Information Reviewed: Yes Appearance: Well-Appearing, Well-Nourished, Pain Distress - mild Vital Signs: Initial Vital Signs Temp 98.7 F 01/06/19 14:57 Pulse 99 01/06/19 14:57 Resp 20 01/06/19 14:57 BP 108/69 07/20/19 14:57 Pulse Ox 99 01/06/19 14:57 Vital Signs Reviewed: Yes Eye Exam: Normal Eyes: Positive: Conjunctiva Clear ENT Exam: Normal ENT: Positive: Normal ENT inspection, Hearing grossly normal. Negative: Nasal congestion, Trismus, Muffled voice, Hoarse voice Dental Exam: Normal Neck exam: Normal Neck: Positive: Supple, Nontender Respiratory Exam: Normal Respiratory: Positive: Chest non-tender, No respiratory distress, No accessory muscle use Cardiovascular Exam: Normal Cardiovascular: Positive: RRR, Pulses Normal, Brisk Capillary Refill Musculoskeletal Exam: Other Musculoskeletal: Positive: Strength Limited @ - left ankle, ROM Limited @ - left ankle Neurological Exam: Normal Neurological: Positive: Alert, Muscle Tone Normal Psychological Exam: Normal Skin Exam: Normal Lower Extremity Course/Dx - Course Course Of Treatment: cam boot, bilateral wrist splints follow with orthopedic MDsurinder, off work for 8 days,pain control - Differential Dx/Diagnosis Provider Diagnosis: Left wrist sprain, Right wrist sprain, Left ankle sprain Discharge - Sign-Out/Discharge Documenting (check all that apply): Patient Departure All imaging exams completed and their final reports reviewed: Yes - Discharge Plan Condition: Stable Disposition: HOME Prescriptions: Hydrocodone/Acetaminophen [Hydrocodone-Acetamin 5-325 mg] 1 each PO Q6HR PRN # 10 tablet MDD 4 PRN Reason: Pain Ibuprofen TAB* [Motrin TAB* 600 MG] 600 mg PO Q6H PRN #40 tab PRN Reason: pain Patient Education Materials: Ankle Sprain (DC), Ankle Stirrup Splint (ED), R.I.C.E. Treatment (ED), Wrist Sprain (ED) Forms: *Work Release Referrals: Alisson Ruvalcaba MD [Medical Doctor] - 3 Days - Billing Disposition and Condition Condition: STABLE Disposition: Home
== END 2019-01-06 16:44 | disposition home or self-care (01) ==
LOC: UCEAST 14:47
DX: S93.402A Sprain of unspecified ligament of left ankle, initial encounter (principal); S63.502A Unspecified sprain of left wrist, initial encounter; S63.501A Unspecified sprain of right wrist, initial encounter; V48.4XXA Person boarding or alighting a car injured in noncollision transport accident, initial encounter; Y92.89 Other specified places as the place of occurrence of the external cause; F17.210 Nicotine dependence, cigarettes, uncomplicated
CPT/HCPCS: 99214; A9270-GY; G0463

== ENCOUNTER 2019-02-27 10:56 | Emergency (ER) | payer OTHER ==
--- OUTSIDE RECORDS SUMMARY | 2019-02-27 11:03 | XMS REPORT | Continuity of Care Document ---
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 Medicine Problems Description No Information Available Social History Type Date Description Comments Sex Unknown Tobacco Use Start: Unknown Patient is a current cigarette smoker, smokes every day Tobacco Use Start: Unknown currently smokes 1/2 Pack Daily Smoking Status Reviewed: 02/15/19 currently smokes 1/2 Pack Daily ETOH Use Denies alcohol use Tobacco Use Start: Unknown Patient is a current smoker, smokes every day Exercise Type/Frequency Exercises regularly Allergies, Adverse Reactions, Alerts Description No Known Drug Allergies Medications Description No Active Medications Immunizations Description No Information Available Vital Signs Date Vital Result Comment 02/15/2019 4:27pm Height 67 inches 5'7" Heart Rate 104 /min BP Systolic 120 mmHg BP Diastolic 76 mmHg Respiratory Rate 18 /min Body Temperature 98.0 F Pain Level 3 01/25/2019 1:44pm Height 67 inches 5'7" Weight 140.00 lb BP Systolic 114 mmHg BP Diastolic 78 mmHg Body Temperature 97.2 F Pain Level 6 BMI (Body Mass Index) 21.9 kg/m2 Results Test Date Facility Test Result H/L Range Note Rapid Influenza 08/24/2018 [facility] Influenza A NEGATIVE Negative 1 A & B Molecular [address] [place] [address] [phone] Influenza B Molecular NEGATIVE Negative Laboratory test 08/24/2018 [facility] Rapid SEE RESULT [address] Influ[place] [address] Antigen [phone] Laboratory test 08/24/2018 [facility] Point of Care 91 mg/dL Normal 70-[address] Glucose 0 [place] [address] [phone] CBC Auto Diff 08/24/2018 [facility] White Blood 9.3 10^3/uL Normal 3.5-[address] Count 0.8 [place], [place] [id number] [phone] Red Blood Count 5.31 10^6/uL Normal 4.00-5.40 Hemoglobin 14.8 g/dL Normal 12.0-16.0 Hematocrit 45 % Normal 35-47 Mean Corpuscular Volume 86 fL Normal 80-97 Mean Corpuscular Hemoglobin 28 pg Normal 27-31 Mean Corpuscular HGB Conc 33 g/dL Normal 31-36 Red Cell Distribution Width 13 % Normal 10.5-15 Platelet Count 290 10^3/uL Normal 150-450 Mean Platelet Volume 8.5 fL Normal 7.4-10.4 Abs Neutrophils 6.4 10^3/uL Normal 1.5-7.7 Abs Lymphocytes 2.1 10^3/uL Normal 1.0-4.8 Abs Monocytes 0.7 10^3/uL Normal 0-0.8 Abs Eosinophils 0.1 10^3/uL Normal 0-0.6 Abs Basophils 0.1 10^3/uL Normal 0-0.2 Abs Nucleated RBC 0 10^3/uL Granulocyte % 68.4 % Lymphocyte % 22.1 % Monocyte % 7.0 % Eosinophil % 1.5 % Basophil % 1.0 % Nucleated Red Blood Cells % 0.1 Inr/Protime 08/24/2018 [facility] Inr 0.95 Normal 0.77-1.[address] [place] [address] [phone] Laboratory test 08/24/2018 [facility] Partial 30.9 Normal 26.0 -36.[address] [address] Time PTT [phone] Lactic Acid 2.3 mmol/L Critical high 0.5-2.0 4 Comp Metabolic 08/24/2018 [facility] Sodium 138 mmol/L Normal 135-[address] [place] [address] [phone] Potassium 4.1 mmol/L Normal 3.5-5.0 Chloride 108 mmol/L Normal 101-111 Co2 Carbon Dioxide 24 mmol/L Normal 22-32 Anion Gap 6 mmol/L Normal 2-11 Glucose 92 mg/dL Normal 70-100 Blood Urea Nitrogen 17 mg/dL Normal 6-24 Creatinine 0.75 mg/dL Normal 0.51-0.95 BUN/Creatinine Ratio 22.7 High 8-20 Calcium 9.4 mg/dL Normal 8.6-10.3 Total Protein 6.7 g/dL Normal 6.4-8.9 Albumin 4.1 g/dL Normal 3.2-5.2 Globulin 2.6 g/dL Normal 2-4 Albumin/Globulin Ratio 1.6 Normal 1-3 Total Bilirubin 0.30 mg/dL Normal 0.2-1.0 Alkaline Phosphatase 67 U/L Normal 34-104 Alt 15 U/L Normal 7-52 Ast 14 U/L Normal 13-39 Egfr Non- 87.4 >60 Egfr 105.8 >60 5 Lipid Profile 08/24/2018 [facility] Triglycerides 89 mg/dL 6 (Trig/Chol/HDL) [address] [place] [address] [phone] Cholesterol 136 mg/dL 7 HDL Cholesterol 42.2 mg/dL 8 LDL Cholesterol 76 mg/dL 9 Laboratory test 08/24/2018 [facility] Troponin-I (TnI) 0.00 ng/ mL <0.04 [address] [place] [address] [phone] HCG < 0.60 mIU/mL 11 Type & Screen 08/24/2018 [facility] Patient Blood Type O Positive [address] [place] [address] [phone] Antibody Screen NEGATIVE Laboratory test 08/24/2018 [facility] Magnesium 2.1 mg/dL Normal 1.9-2.[address] [place] [address] [phone] Urinalysis 08/24/2018 [facility] Urine Color Yellow Profile [address] [place] [address] [phone] Urine Appearance Clear Urine Specific [place] 1.009 Low 1.010-1.030 Urine pH 7.0 Normal 5-9 Urine Urobilinogen Negative Negative Urine Ketones Negative Negative Urine Protein Negative Negative Urine Leukocytes Negative Negative Urine Blood 2+ Abnormal Negative Urine Nitrite Negative Negative Urine Bilirubin Negative Negative Urine Glucose Negative Negative Urine White Blood Cell Absent Absent Urine Red Blood Cell Trace(0-2/hpf) Absent Urine Bacteria Absent Absent Urine Squamous Epithelial Cell Present Abnormal Absent 1 Contract Assistant: [id number] 2 SEE RESULT BELOW Name: KINDRA SCHULZ Yumiko : [address]: Jannie Euceda MD Acct: [id number] Unit: [id number] AGE: 37 Location: ED Re08/24/18 SEX: F Status: REG ER SPEC: [id number] NICK: 08/24/18-[address] [facility] [address]: Jannie Euceda MD REQ: [id number] RECD: 08/24/185 STATUS: D[facility] DR: Maged Bolton [employer] OPERATOR Nick Harkins MD No Primary Care Phys,NOPCP Pavel Torre [employer] OPERATOR Zaira Ortiz MD _ SOURCE: NASAL SPDESC: ORDERED: Flu A B Request Procedure Result Reported Site Rapid Influenza A B Request Final 08/24/18- 1029 ML Specimen received for Influenza A/B Molecular testing * ML - Main Lab . END OF REPORT DEPARTMENT OF PATHOLOGY, [address] [place] [address] Poncho Meneses M.D. Director [facility] # [id number] 3 Contract Assistant: [id number] Critical Result LACT:2.3 Called to [id number] at: 08:29:24 by:[id number] Read back by:[id number] [facility] Severe Sepsis and Septic Shock Management Bundle Measure requires all lactic acids initially measuring >2.0 mmol/L be repeated. 5 Because ethnic data is not always readily available, this report includes an eGFR for both -Americans and non- Americans. The National Kidney Disease Education Program (NKDEP) does not endorse the use of the MDRD equation for patients that are not between the ages of 18 and 70, are , have extremes of body size, muscle mass, or nutritional status, or are non- or non-. According to the National Kidney Foundation, irrespective of diagnosis, the stage of the disease is based on the level of kidney function: Stage Description GFR(mL/min/1.73 m(2)) 1 Kidney damage with normal or decreased GFR 90 2 Kidney damage with mild decrease in GFR 60-89 3 Moderate decrease in GFR 30-59 4 Severe decrease in GFR 15-29 5 Kidney failure <15 (or dialysis) 6 Desirable: <150 Borderline High: 150-199 High: 200-499 Very High: >500 7 Desirable: <200 Borderline High: 200-239 High: >239 8 Low: <40 Desirable: 40-60 High: >60 9 Desirable: <100 Near Optimal: 100-129 Borderline High: 130-159 High: 160-189 Very High: >189 10 Troponin-I testing on Plasma Separator Tubes (PST) has a known false positive rate of 0.20-0.40%. All positive troponins reflex immediate secondary confirmatory testing. 11 <5.0 Negative 5.0 - 25.0 Indeterminate (Repeat testing recommended after 72 hours) >25.0 Positive Perimenopausal women can display HCG levels of up to 20 mIU/mL Procedures Date Code Description Status 08/24/2018 50927 ECHO Transthorasic Realtime 2D W Doppler & Color Flow Completed Hosp 04/12/2014 [id number] Mammogram Completed 01/11/2014 [id number] Mammogram Completed Medical Devices Description No Information Available Encounters Type Date Location Provider Dx Diagnosis Office Visit 01/25/2019 Orthopedic Sergo F S93.402A Sprain of 1:00p [facility] J[facility]quin Brown MD unspecified ligament of left ankle, init encntr S63.502A Unspecified sprain of left wrist, initial encounter Office Visit 08/26/2018 [facility] Nirav R51 Headache 7:00a Clinic MD Alyssa Office Visit 08/26/2018 [facility] G43.909 Migraine, unsp, 10:41a Assoc,[facility] Hospitalists milad Walton M.D.,FACP without status migrainosus Office Visit 08/25/2018 [facility] Juan M Garcia R51 Headache 7:00a Clinic Robi Saenz Office Visit 08/25/2018 [facility] James R51 Headache 10:41a MD Freddy R41.0 Disorientation, unspecified R26.89 Other abnormalities of gait and mobility R53.1 Weakness Office Visit 08/24/2018 7:00a [facility] Nirav Shah MD R51 Headache R26.81 Unsteadiness on feet R94.02 Abnormal brain scan Office Visit 08/24/2018 10:41a [facility] James Hayes, I63.9 Cerebral MD infarction, unspecified Assessments Date Code Description Provider 02/15/2019 S93.402D Sprain of unspecified ligament of Sergo Brown MD left ankle, subsequent encounter 01/25/2019 S93.402A Sprain of unspecified ligament of Sergo Brown MD left ankle, initial encounter 01/25/2019 S63.502A Unspecified sprain of left wrist, Sergo Brown MD initial encounter 08/26/2018 R51 Headache Nirav Shah MD 08/26/2018 G43.909 Migraine, unsp, not intractable, Thierry Castro M.D., FACP without status migrainosus 08/25/2018 R51 Headache Juan M Saenz M.D. 08/25/2018 R51 Headache James Hayes MD 08/25/2018 R41.0 Disorientation, unspecified James Hayes MD 08/25/2018 R26.89 Other abnormalities of gait and James Hayes MD mobility 08/25/2018 R53.1 Weakness James Hayes MD 08/24/2018 R51 Headache Nirav Shah MD 08/24/2018 I63.9 Cerebral infarction, unspecified James Hayes MD 08/24/2018 R26.81 Unsteadiness on feet Nirav Shah MD 08/24/2018 I63.9 Cerebral infarction, unspecified Earnest Easley M.D. 08/24/2018 R94.02 Abnormal brain scan Nirav Shah MD Plan of Treatment Future Appointment(s):03/15/2019 2:15 pm - [facility]o [facility]02/15/2019 - IRASEMA Reyez93.402D Sprain of unspecified ligament of left ankle, subsequent encounterFollow up:Follow up: 4 weeks Functional Status Description No Information Available Mental Status Description No Information Available Referrals Description No Information Available
--- NOTE | 2019-02-27 11:05 | UC ---
Laceration HPI - History Of Current Complaint Stated Complaint: FINGER LAC Time Seen by Provider: 02/27/19 11:05 Hx Last Menstrual Period: [id number] - Allergies/Home Medications Allergies/Adverse Reactions: Allergies Allergy/AdvReac Type Severity Reaction Status Date / Time No Known Allergies Allergy Verified 02/27/19 11:03 PMH/Surg Hx/FS Hx/Imm Hx Other History Of: Negative For: HIV, Hepatitis B, Hepatitis C, Anticoagulant Therapy - Surgical History Surgical History: Yes Surgery Procedure, Year, and Place: 2007, [facility]. R KNEE, [facility], 17 YRS AGO - Family History Known Family History: Positive: Hypertension, Diabetes Negative: Respiratory Disease - Social History Alcohol Use: None Substance Use Type: None Smoking Status (MU): Heavy Every Day Tobacco Smoker Type: Cigarettes Amount Used/How Often: 1/2 PPD Have You Smoked in the Last Year: Yes Household Exposure Type: Cigarettes - Immunization History Most Recent Influenza Vaccination: NONE Most Recent Tetanus Shot: UTD Most Recent Pneumonia Vaccination: N/A Discharge ED - Sign-Out/Discharge Documenting (check all that apply): Patient Departure All imaging exams completed and their final reports reviewed: No Studies - Discharge Plan Condition: Stable Disposition: HOME Patient Education Materials: Skin Avulsion (ED) Referrals: Linnette Giraldo [Primary Care Provider] - Additional Instructions: If you develop a fever, shortness of breath, chest pain, new or worsening symptoms - please call your PCP or go to the ED immediately. - Billing Disposition and Condition Condition: STABLE Disposition: Home
[2019-02-27 11:15] VITALS: BP 114/73
[2019-02-27] MEDS ORDERED: Tetan/Diph/Pertus SYR(Tdap)* 0.5 ML SYR(BOOSTRIX) use SYR IM ONE (11:16)
--- NOTE | 2019-02-27 11:40 | UC ---
General HPI - HPI Summary HPI Summary: Pleasant 38 yo female c/o R 5th finger laceration with ream cutter just prior to arrival. Bleeding controlled with pressure. Last tet > 5 yrs. Also requests antibiotic prescription and blood work d/t R groin infection. Hx hydradenitis, x several years. Currently has had R inner thigh / groin swelling x apprx 3 weeks. Afraid of getting septic, and wishes blood work (d/t hx sepsis in the past). She had scheduled an appt with pcp for evaluation this afternoon, but finger injury prompted visit here now. No b/b issues, currently on menstrual period. No recent fever / chills. Last po early this am. - History of Current Complaint Chief Complaint: UCLaceration Stated Complaint: FINGER LAC Time Seen by Provider: 02/27/19 11:05 Hx Last Menstrual Period: [id number] Pain Intensity: 5 - Allergy/Home Medications Allergies/Adverse Reactions: Allergies Allergy/AdvReac Type Severity Reaction Status Date / Time No Known Allergies Allergy Verified 02/27/19 11:17 PMH/Surg Hx/FS Hx/Imm Hx Previously Healthy: Yes - ankle injury early summer Other History Of: Negative For: HIV, Hepatitis B, Hepatitis C, Anticoagulant Therapy - Surgical History Surgical History: Yes Surgery Procedure, Year, and Place: 2006, [facility]. R [facility], [facility], 17 YRS AGO - Family History Known Family History: Positive: Hypertension, Diabetes Negative: Respiratory Disease - Social History Alcohol Use: None Substance Use Type: None Smoking Status (MU): Heavy Every Day Tobacco Smoker Type: Cigarettes Amount Used/How Often: 1/2 PPD Have You Smoked in the Last Year: Yes Household Exposure Type: Cigarettes - Immunization History Most Recent Influenza Vaccination: NONE Most Recent Tetanus Shot: UTD Most Recent Pneumonia Vaccination: N/A Review of Systems All Other Systems Reviewed And Are Negative: Yes Constitutional: Positive: Other - see hpi Skin: Positive: Other - see hpi Eyes: Positive: Negative ENT: Positive: Negative Respiratory: Positive: Negative Cardiovascular: Positive: Negative Gastrointestinal: Positive: Negative Genitourinary: Positive: Other - see hpi Motor: Positive: Negative Neurovascular: Positive: Negative, Other - distal R 5th finger "numb" Musculoskeletal: Positive: Other: - see hpi Neurological: Positive: Other - see above Psychological: Positive: Negative Is Patient Immunocompromised?: No Physical Exam Triage Information Reviewed: Yes Appearance: Well-Nourished, Other: - looks uncomfortable but nad Vital Signs: Initial Vital Signs Temp 99.1 F 02/27/19 11:10 Pulse 100 02/27/19 11:10 Resp 20 02/27/19 11:10 BP 114/73 02/27/19 11:10 Pulse Ox 99 02/27/19 11:10 Vital Signs Reviewed: Yes Eye Exam: Normal ENT Exam: Normal Neck exam: Normal Respiratory Exam: Normal Cardiovascular Exam: Normal Abdominal Exam: Normal Abdomen Description: Positive: Nontender Musculoskeletal Exam: Other - R 5th finger laceration, includes part of nail. Mostly avulsed. Avulsed tissue is dusky at time. No luis visible bone, but very deep. Bleeding - mild oozing. Distal sens LT not present, but wound is painful. Neurological Exam: Other - [place] [facility] Psychological Exam: Normal Skin Exam: Other - nondiaphoretic. no visible or reported rash. R inner thigh wound as described in coa. R 5th finger - [place] [facility] [place] Course/Dx - Course Course Of Treatment: R inner thigh approx 2cmW x 4cmL fluctuant area. + evidence of prior scarring. + not overly hot. very tender to examination. c/o R groin tenderness as well, c/w lymphadehopathy. Ms. Allen is very concerned about the groin issue, and afraid it it getting really bad. Wishes blood work, and abx. We discussed abx options, she would like to start ciprofloxacin (concerned about GI upset with doxy / augmentin), aware to pay careful attention to prior ankle injury site. Reviewed sun sens, probiotic, etc. Re R 5th finger - xray as noted in [employer]. wound irrigated by RN. Wound not sutured d/t avulsion compromise. Wound closed with skin adhesive and overlie steristrip. Reviewed wound care, need for elevation. See avs. Questions as posed answered to the best of my ability. - Diagnoses Provider Diagnosis: Finger laceration with complication, Fracture, finger, Hydradenitis Discharge ED - Sign-Out/Discharge Documenting (check all that apply): Patient Departure All imaging exams completed and their final reports reviewed: Yes - Discharge Plan Condition: Stable Disposition: HOME Prescriptions: Ciprofloxacin HCl [Cipro] 500 mg PO BID #14 tablet Fluconazole 150 MG TAB* [Diflucan 150 MG TAB*] 150 mg PO DAILY #2 tablet Ibuprofen TAB* [Motrin TAB* 600 MG] 600 mg PO Q8H PRN #30 tab PRN Reason: Pain Patient Education Materials: Diphtheria/Acellular Pertussis/Tetanus Booster Vaccine (By injection), Finger Fracture (ED), Abscess (ED), Skin Avulsion (ED) Referrals: Rosa Maxwell MD [Medical Doctor] - Chasity Delaney MD [Medical Doctor] - Additional Instructions: If you develop a fever, shortness of breath, chest pain, new or worsening symptoms - please call your PCP or go to the ED immediately. Please follow up with your primary care physician for double wound check ( finger and groin) in 2 days. Seek medical attention for worse or new problems in the meantime. Blood work in lab. Keep finger dressing on until recheck in 2 days. If dressing comes off, then light bandage. When glue comes off (5 days), then you may use bacitracin (not neosporin) once daily with dry overlie dressing. Avoid astringents (ie no rubbing alcohol, hydrogen peroxide, etc). Do not soak. Avoid telfa. AVOID SMOKING ! Re groin - follow up with primary care physician. Consider Dermatology for hydradenitis. Loose cotton clothing. Follow up Dr. Delaney (hand doctor) 10:00am on , 01 Mar 2019. Please call to confirm this appointment. Please go to the Emergency Department for any worse or new problems. - Billing Disposition and Condition Condition: STABLE Disposition: Home
[2019-02-27 16:28] LABS: ABS Basophils 0.1 10^3/ul (0-0.2); ABS Eosinophils 0.1 10^3/ul (0-0.6); ABS Lymphocytes 3.3 10^3/ul (1.0-4.8); ABS Monocytes 0.5 10^3/ul (0-0.8); ABS Neutrophils 4.5 10^3/ul (1.5-7.7); Eosinophil % 1.3 %; Hematocrit 44 % (35-47); Hemoglobin 14.6 g/dL (12.0-16.0); Lymphocyte % 38.9 %; Mean Corpuscular HGB Conc 33 g/dL (31-36); Mean Corpuscular Hemoglobin 28 pg (27-31); Mean Corpuscular Volume 85 fL (80-97); Mean Platelet Volume 9.4 fL (7.4-10.4); Nucleated Red Blood Cells % 0.1; Platelet Count 261 10^3/uL (150-450); Red Blood Count 5.16 10^6 /uL (3.70-4.87); Red Cell Distribution Width 14 % (10-15); White Blood Count 8.4 10^3/uL (3.5-10.8)
[2019-02-27 16:31] LABS: Calcium 9.1 mg/dL (8.6-10.3); Potassium 4.4 mmol/L (3.5-5.0)
[2019-02-27 16:37] LABS: BUN/Creatinine Ratio 15.1 (8-20); C Reactive Protein 2.69 mg/L (<8.01); EGFR African American 108.5 (>60); EGFR Non-African American 89.7 (>60)
== END 2019-02-27 13:06 | disposition home or self-care (01) ==
LOC: UCEAST 10:56
DX: S61.216A Laceration without foreign body of right little finger without damage to nail, initial encounter (principal); W26.9XXA Contact with unspecified sharp object(s), initial encounter; Y93.G9 Activity, other involving cooking and grilling; Y92.010 Kitchen of single-family (private) house as the place of occurrence of the external cause; Y99.8 Other external cause status; I10 Essential (primary) hypertension; E11.9 Type 2 diabetes mellitus without complications; F17.210 Nicotine dependence, cigarettes, uncomplicated; Z23 Encounter for immunization
CPT/HCPCS: 12001; 36415; 73140; 80048; 85025; 86140; 90471; 90715; 99212; G0463

== ENCOUNTER 2019-06-03 07:06 | Emergency (ER) | payer OTHER ==
--- OUTSIDE RECORDS SUMMARY | 2019-06-03 07:13 | XMS REPORT | Continuity of Care Document ---
:1980 External Reference #:[id number] Author Name Ronni Ann MD, FACS (transmitted by agent of provider Chioma Aldridge) Address [address] 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 Medicine Problems Description No Information Available Social History Type Date Description Comments Sex Unknown Tobacco Use Start: Unknown Patient is a current cigarette smoker, smokes every day Tobacco Use Start: Unknown currently smokes 1/2 Pack Daily Smoking Status Reviewed: 04/10/19 currently smokes 1/2 Pack Daily ETOH Use Denies alcohol use Tobacco Use Start: Unknown Patient is a current smoker, 1/2 PPD smokes every day Exercise Type/Frequency Exercises regularly When working Allergies, Adverse Reactions, Alerts Description No Known Drug Allergies Medications Active Medications SIG Qnty Indications Ordering Provider Date Doxycycline Hyclate 1 tablet by mouth 60caps L73.2 Ronni Ann, 2018 twice a day for APOLONIA PEDERSON 100mg Capsules 30 days Clindamycin Phosphate Apply to affected 40gm L73.2 Ronni Ann, 2018 area twice daily APOLONIA PEDERSON 2% Cream Ibuprofen one tablet by Unknown 600mg Tablets mouth every 6 hours as needed pain Immunizations Description No Information Available Vital Signs Date Vital Result Comment 04/10/2019 10:20am Weight 140.00 lb Heart Rate 80 /min BP Systolic 118 mmHg BP Diastolic 80 mmHg Respiratory Rate 16 /min Body Temperature 98.9 F 03/15/2019 2:18pm Height 67 inches 5'7" Heart Rate 105 /min BP Systolic 124 mmHg BP Diastolic 68 mmHg Respiratory Rate 18 /min Body Temperature 98.5 F Pain Level 0 Results Description No Information Available Procedures Date Code Description Status 04/12/2014 [id number] Mammogram Completed 01/11/2014 [id number] Mammogram Completed Medical Devices Description No Information Available Encounters Type Date Location Provider Dx Diagnosis Office Visit 03/01/2019 [facility] July Cannon, S61.316A Laceration w/o fb 9:45a at [place] RPA-C of r little finger w damage to nail, init Office Visit 02/15/2019 [facility] Sergo Bennett S93.402D Sprain of 3:30p at Keven Brown MD unspecified ligament of left ankle, subs encntr Office Visit 01/25/2019 [facility] Sergo Bennett S93.402A Sprain of 1:00p at [facility] Brown MD unspecified ligament of left ankle, init encntr S63.502A Unspecified sprain of left wrist, initial encounter Assessments Date Code Description Provider 04/10/2019 L73.2 Hidradenitis suppurativa Ronni Ann MD, FACS 04/10/2019 Z72.0 Tobacco use Ronni Ann MD, FACS 03/15/2019 S93.402D Sprain of unspecified ligament of left Sergo Brown MD ankle, subsequent encounter 03/15/2019 S93.402D Sprain of unspecified ligament of left Sergo Brown MD ankle, subsequent encounter 03/01/2019 S61.316A Laceration without foreign body of right July Cannon , RPA-C little finger with damage to nail, initial encounter 02/15/2019 S93.402D Sprain of unspecified ligament of left Sergo Brown MD ankle, subsequent encounter 01/25/2019 S93.402A Sprain of unspecified ligament of left Sergo Brown MD ankle, initial encounter 01/25/2019 S63.502A Unspecified sprain of left wrist, Sergo Brown MD initial encounter Plan of Treatment Future Appointment(s):05/24/2019 10:00 am - Ronni Ann MD, FACS at [facility] [address]04/10/2019 - Ronni Ann MD, FACSL73.2 Hidradenitis suppurativaNew Medication:Doxycycline Hyclate 100 mg - 1 tablet by mouth twice a day for 30 daysClindamycin Phosphate 2 % - Apply to affected area twice dailyFollow up:6 weeksInstructions:Instruction sheet vhlpmQ28.0 Tobacco useInstructions:Please quit smoking Functional Status Description No Information Available Mental Status Description No Information Available Referrals Description No Information Available
--- OUTSIDE RECORDS SUMMARY | 2019-06-03 07:13 | XMS REPORT | Continuity of Care Document ---
:1980 External Reference #:[id number] Author Name Yasir Schumacher PA Address [address] [place] [address] Problems Active Problems Provider Date Heterozygous Factor V Leiden mutation Yasir cShumacher PA Onset: 01/09/2019 Tobacco user Yasir Schumacher PA Onset: 01/09/2019 History of molar Yasir Schumacher PA Onset: 01/09/2019 Note: x2 Fibroadenoma of breast Yasir Schumacher PA Onset: 01/09/2019 Note: left -- biopsy 08/2018 Migraine variants Yasir Schuamcher PA Onset: 01/09/2019 Social History Type Date Description Comments Sex Unknown Tobacco Use Start: Unknown currently smokes 1/2 Pack Daily ETOH Use Negative For Currently consumes alcohol Tobacco Use Start: Unknown Patient is a current smoker, smokes every day Smoking Status Reviewed: 04/12/19 Patient is a current smoker, smokes every day Sun Exposure moderate amount of sun exposure Sun Exposure Uses 15-30 SPF Seat Belt/Car Seat always Allergies, Adverse Reactions, Alerts Description No Known Drug Allergies Medications Active Medications SIG Qnty Indications Ordering Date Provider Sertraline HCL 1/2 tab by mouth 45tabs F60.5 Rosa Woods 04/12/2019 50mg every evening for MD Yumiko Tablets 1week, then increase to 1 every evening for 2weeks, and then to 2 every evening Zaleplon 1 by mouth every 30caps G47.00 Rosa Woods 04/12/2019 5mg night at bedtime as MD Yumiko Capsules needed for sleep Lorazepam 1 po preprocedure by 3tabs Rosa Woods 09/11/2018 0.5mg mouth as needed MD Yumiko Tablets Magnesium-Oxide take 1 tablet by 30tabs G43.809 Rosa Woods 2018 mouth at bedtime MD Yumiko 400(241.3mg) mg Tablets Riboflavin 1 po bid 60caps G43.809 Chuck Rosa 08/29/2018 100mg MD Yumiko Capsules History Medications Meloxicam 1 by mouth twice 60tabs S60.219D Rosa Woods 01/12/2019 - 7.5mg a day for MD Yumiko 04/12/2019 Tablets 2-3weeks then as needed Medications Administered in Office Medication SIG Qnty Indications Ordering Provider Date Becky Smith M.D. 08/08/2000 Injection Immunizations CPT Code Status Date Vaccine Lot # [id number] Given 10/12/2000 MMR Virus Immunization 44364 Given 08/08/2000 Hepatitis B Vac Ped/Adolescent 3 Dose Schedule 65300 Given 08/08/2000 MMR Virus Immunization Vital Signs Date Vital Result Comment 04/12/2019 3:05pm Weight 148.00 lb Heart Rate 109 /min BP Systolic 123 mmHg BP Diastolic 79 mmHg Height 67 inches 5'7" BMI (Body Mass Index) 23.2 kg/m2 01/22/2019 11:30am Weight 145.00 lb Heart Rate 91 /min BP Systolic 109 mmHg BP Diastolic 78 mmHg Height 67 inches 5'7" BMI (Body Mass Index) 22.7 kg/m2 Results Test Date Facility Test Result H/L Range Note Basic Metabolic 02/27/2019 [facility] Sodium 137 mmol/L Normal 135-145 1 Panel Potassium 4.4 mmol/L Normal 3.5-5.0 Chloride 105 mmol/L Normal 101-111 Co2 Carbon Dioxide 28 mmol/L Normal 22-32 Anion Gap 4 mmol/L Normal 2-11 Calcium 9.1 mg/dL Normal 8.6-10.3 Glucose 114 mg/dL High 70-100 Blood Urea Nitrogen 11 mg/dL Normal 6-24 Creatinine 0.73 mg/dL Normal 0.51-0.95 BUN/Creatinine Ratio 15.1 Normal 8-20 Egfr Non- 89.7 >60 Egfr 108.5 >60 2 Laboratory test 02/27/2019 [facility] C Reactive 2.69 mg/L Normal <8.01 finding Protein CBC Auto Diff 02/27/2019 [facility] White Blood 8.4 Normal 3.5 -10.8 Count 10^3/uL Red Blood Count 5.16 10^6/uL High 3.70-4.87 Hemoglobin 14.6 g/dL Normal 12.0-16.0 Hematocrit 44 % Normal 35-47 Mean Corpuscular Volume 85 fL Normal 80-97 Mean Corpuscular Hemoglobin 28 pg Normal 27-31 Mean Corpuscular HGB Conc 33 g/dL Normal 31-36 Red Cell Distribution Width 14 % Normal 10-15 Platelet Count 261 10^3/uL Normal 150-450 Mean Platelet Volume 9.4 fL Normal 7.4-10.4 Abs Neutrophils 4.5 10^3/uL Normal 1.5-7.7 Abs Lymphocytes 3.3 10^3/uL Normal 1.0-4.8 Abs Monocytes 0.5 10^3/uL Normal 0-0.8 Abs Eosinophils 0.1 10^3/uL Normal 0-0.6 Abs Basophils 0.1 10^3/uL Normal 0-0.2 Abs Nucleated RBC 0.0 10^3/uL Granulocyte % 53.3 % Lymphocyte % 38.9 % Monocyte % 5.6 % Eosinophil % 1.3 % Basophil % 0.9 % Nucleated Red Blood Cells % 0.1 1 [id number] 2 Because ethnic data is not always readily [...] 15-29 5 Kidney failure <15 (or dialysis) Procedures Date Code Description Status 09/14/2018 [id number] Mammogram Completed 09/05/2018 [id number] Mammogram Completed Medical Devices Description No Information Available Encounters Type Date Location Provider Dx Diagnosis Office Visit 01/22/2019 Yasir Whitaker PA S93.492D Sprain of other 11:40a ligament of LEFT ankle, subsequent encounter S60.219D Contusion of unspecified wrist, subsequent encounter Office Visit 01/12/2019 9:00a Christina Yasir Schumacher PA S60.219D Contusion of unspecified wrist, subsequent encounter S93.492D Sprain of other ligament of LEFT ankle, subsequent encounter Office Visit 01/09/2019 12:20p Yasir Whitaker PA D68.51 Activated protein C resistance F17.200 Nicotine dependence, unspecified, uncomplicated Z87.59 Personal history of comp of preg, chldbrth and the puerp 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.2 Benign neoplasm of LEFT breast G43.809 Other migraine, not intractable, without status migrainosus F43.23 Adjustment disorder with mixed anxiety and depressed mood Assessments Date Code Description Provider 04/12/2019 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 Yasir Schumacher PA 04/12/2019 F43.23 Adjustment disorder with mixed anxiety and Yasir Schumacher PA depressed mood 04/12/2019 G47.00 Insomnia, unspecified Yasir Schumacher PA 01/22/2019 S93.492D Sprain of other ligament of LEFT ankle, Yasir Schumacher PA subsequent encounter 01/22/2019 S60.219D Contusion of unspecified wrist, subsequent Yasir Schumacher PA encounter 01/12/2019 S60.219D Contusion of unspecified wrist, subsequent Yasir Schumacher PA encounter 01/12/2019 S93.492D Sprain of other ligament of LEFT ankle, Yasir Schumacher PA subsequent encounter 01/09/2019 D68.51 Heterozygous Factor V Leiden mutation Yasir Schumacher PA 01/09/2019 F17.200 Tobacco user Yasir Schumacher PA 01/09/2019 Z87.59 History of molar Yasir Schumacher PA 01/09/2019 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.2 Fibroadenoma of breast Yasir Schumacher PA 01/09/2019 G43.809 Other migraine, not intractable, without status Yasir Schumacher PA migrainosus 01/09/2019 F43.23 Adjustment disorder with mixed anxiety and Yasir Schumacher PA depressed mood Plan of Treatment Future Appointment(s):05/10/2019 2:40 pm - Yasir Schumacher PA at [id number] - Yasir Schumacher, PA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New Medication:Sertraline HCL 50 mg - 1/2 tab by mouth every evening for 1week, then increase to 1 every evening for 2weeks, and then to 2 every eveningComments :long discussion about life and challenges with [facility].will Rx sertraline. recommend counselling.Follow up:f/u 3ynjP21.23 Adjustment disorder with mixed anxiety and depressed moodComments:working very long shifts and no days off with the [employer]. stresses over money and providingfor her kids BUT never seeing them and spending time. ??change jobs. ??afford to live.G47.00 Insomnia, unspecifiedNew Medication:Zaleplon 5 mg - 1 by mouth every night at bedtime as needed for sleepComments:will Rx meds. to help. Functional Status Description No Information Available Mental Status Description No Information Available Referrals Refer to Reason for Referral Status Appt Dennise Ugalde left ankle sprain and bilateral wrist sprain [COMP] Closed 01/25-SPOKE TO PT AND SHE JUST HAS TO CALL THEM BACK FOR AN APPT-[facility] [place], [place] [address] [phone] Sergo Marie MD L ankle sprain and Bilateral wrist pain [COMP] Closed 01/25/201901/18-SCHEDULED WITH TOMAS AND IS AWARE OF APPT-[facility] COMP INFO :[facility] DEPT OF LABOR--[employer] [facility] [employer] [facility] [address]-[facility] [address] [place], [place] [address] PHONE--[phone] CLAIM#[id number] Orthopedic Surgeon [address] [place] [address] [phone] Andrés Sellers M.D. h/o molar ; l breast adenoma Scheduled 03/06/201901/16-SCHEDULED WITH MELISSA TO SEE IN [place]- 01/18-MAILED TO [facility] [address] [place] [address] [phone] [place] [phone]
[2019-06-03 07:24] VITALS: BP 129/81
--- NOTE | 2019-06-03 07:29 | UC ---
Lower Extremity/Ankle HPI - HPI Summary HPI Summary: Patient is a 38 year old female, who present today to the urgent care with for right foot pain after she noticed today morning She reports that she accidently kicked the doorway in the dark this morning 0400 and stubbed her lateral 3 toes. She reports chandra in the 3rd, 4th, 5th toe and top mid foot. There is associated swelling. She is able to bear weight but it is painful - History of Current Complaint Chief Complaint: UCLowerExtremity Stated Complaint: FOOT INJURY Time Seen by Provider: 06/03/19 07:14 Hx Obtained From: Patient Hx Last Menstrual Period: [id number] ?: No - LMP 2 weeks ago Pain Intensity: 8 - Allergies/Home Medications Allergies/Adverse Reactions: Allergies Allergy/AdvReac Type Severity Reaction Status Date / Time No Known Allergies Allergy Verified 02/27/19 11:17 Home Medications: Home Medications Antidepressent 06/03/19 [History] DOXYcycline CAP(*) [DOXYcycline 100MG CAP(*)] 1 cap PO BID 06/03/19 [History Confirmed 06/03/19] PMH/Surg Hx/FS Hx/Imm Hx - Additional Past Medical History Additional PMH: Past Medical History : None Past Surgical History: , right knee surgery Family History : non contributory Social History : No alcohol, daily smoker, no drug use. 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, [facility] [place] 17 YRS AGO - Family History Known Family History: Positive: Hypertension, Diabetes, Non-Contributory Negative: Respiratory Disease - Social History Alcohol Use: None Substance Use Type: None Smoking Status (MU): Heavy Every Day Tobacco Smoker Type: Cigarettes Amount Used/How Often: 1/2 PPD Have You Smoked in the Last Year: Yes Household Exposure Type: Cigarettes - Immunization History Most Recent Influenza Vaccination: NONE Most Recent Tetanus Shot: UTD Most Recent Pneumonia Vaccination: N/A Review of Systems All Other Systems Reviewed And Are Negative: Yes Constitutional: Positive: Negative Skin: Positive: Negative Eyes: Positive: Negative ENT: Positive: Negative Respiratory: Positive: Negative Cardiovascular: Positive: Negative Gastrointestinal: Positive: Negative Genitourinary: Positive: Negative Motor: Positive: Negative Neurovascular: Positive: Negative Musculoskeletal: Positive: Arthralgia - Right foot, Edema - Right foot Neurological: Positive: Negative Psychological: Positive: Negative Is Patient Immunocompromised?: No Physical Exam - Summary Physical Exam Summary: Vital Signs Reviewed: Yes A+Ox3, no distress Eyes: Conjunctiva Clear ENT: Hearing grossly normal neck: supple Respiratory: Positive: No respiratory distress, No accessory muscle use Cardiovascular: skin color reflect adequate perfusion Musculoskeletal Exam: LIU x 4 without difficulty Neurological: Positive: Alert, ambulatory without difficulty Psychological: Positive: Normal Response Skin: Positive: no rash, no ecchymosis Right Ankle/Feet examination: Ankle: Gait: Normal weight bearing, Inspection/palpation: No bruising, swelling or crepitus noted. There is tenderness to palpation in the area of ATFL, CFL, PTFL, Deltoid ligament. There is no tenderness to palpation of the medial malleolus, lateral malleolus or the base of 5th metatarsal. Ankle mortise appears intact. ROM: full AROM Strength: 5/5 with dorsiflexion, plantarflexion, inversion and eversion Special tests:Anterior drawer test is negative . Side to side test negative.Talar tilt test(inversion stress) and the eversion stress test negative. Negative Squeeze and External Rotation tests. Ankle of other side is negative for bruising, swelling or tenderness to palpation. It has full ROM, strength and stability. Feet: Insp/Palp: Feet normal to inspection bilaterally, normal arch of the feet bilaterally. His Strength: EHL 5/5 blaterally Skin: No scars, rashes, lesions or ecchymosis. 2+ posterior tibial and dorsalis pedis pulse bilaterally. Neuro: Sensation to light touch is intact in the lower extremities bilaterally. Coordination normal. Triage Information Reviewed: Yes Vital Signs: Initial Vital Signs Temp 98.3 F 06/03/19 07:16 Pulse 100 06/03/19 07:16 Resp 18 06/03/19 07:16 BP 129/81 06/03/19 07:16 Pulse Ox 99 06/03/19 07:16 Vital Signs Reviewed: Yes Diagnostics - Radiology No standard instances Radiology Interpretation Completed By: Radiologist - X-ray of the right foot: OBLIQUE FRACTURE OF THE PROXIMAL PHALANX OF THE FOURTH DIGIT. Lower Extremity Course/Dx - Course Course Of Treatment: During the visit today, we obtained urine test which was negative. . X-ray of the right foot: OBLIQUE FRACTURE OF THE PROXIMAL PHALANX OF THE FOURTH DIGIT. We discussed the findings and further plan as started in the cam boot walker and crutches and follow up with orthopedics. Pain control with ibuprofen as needed, work note provided Patient expressed understanding . - Differential Dx/Diagnosis Provider Diagnosis: Foot fracture, right, Fracture of proximal phalanx of toe of right foot Discharge ED - Sign-Out/Discharge Documenting (check all that apply): Patient Departure All imaging exams completed and their final reports reviewed: Yes - Discharge Plan Condition: Stable Disposition: HOME Patient Education Materials: Toe Fracture (ED), Foot Fracture in Adults (ED) Forms: *Work Release Referrals: Alisson Ruvalcaba MD [Medical Doctor] - 2 Days Yasir Schumacher [Primary Care Provider] - Additional Instructions: Continue cam boot walker and crutches Follow up with orthopedics and 2-3 days Pain control as needed with ibuprofen Patients blood pressure slightly high in the prehypertensive range Urgent care today , plan follow up with PCP for better control Return to Urgent care / ER if symptoms get worse. - Billing Disposition and Condition Condition: STABLE Disposition: Home
[2019-06-03] MEDS ORDERED: Ibuprofen TAB* 600 MG PO ONE (07:58)
== END 2019-06-03 08:55 | disposition home or self-care (01) ==
LOC: UCEAST 07:06
DX: S92.511A Displaced fracture of proximal phalanx of right lesser toe(s), initial encounter for closed fracture (principal); W22.8XXA Striking against or struck by other objects, initial encounter; Y92.9 Unspecified place or not applicable; F17.210 Nicotine dependence, cigarettes, uncomplicated
CPT/HCPCS: 84702; 99213; A9270-GY; G0463